=== PATIENT | female | born 1935 | race Caucasian/White ===

== ENCOUNTER → 2016-12-10 | Outpatient (CLI) | payer MEDICARE, OTHER ==
[2016-12-13 11:37] LABS: Alternaria alternata IgE <0.35 kU/L (<0.35); Asperg. fumagatus IgE <0.35 kU/L (<0.35); Asperg. fumagatus IgE Class CLASS 0; Cat Epith & Dander IgE <0.35 kU/L (<0.35); Cat Epith & Dander IgE Class CLASS 0; Clad herbarum IgE <0.35 kU/L (<0.35); Clad herbarum IgE Class CLASS 0; Com. Pigweed IgE <0.35 kU/L (<0.35); Com. Pigweed IgE Class CLASS 0; Common Ragweed IgE Class CLASS 0; Cow's Milk IgE Class CLASS 0; Dermato. farinae IgE <0.35 kU/L (<0.35); Dermato. farinae IgE Class CLASS 0; House Dust (Greer) IgE <0.35 kU/L (<0.35); House Dust (Greer) IgE Class CLASS 0; Maple (Box Elder) IgE <0.35 kU/L (<0.35); Maple (Box Elder) IgE Class CLASS 0; Penicillium notatum IgE Class CLASS 0; Timothy Grass IgE <0.35 kU/L (<0.35); Timothy Grass IgE Class CLASS 0
[2016-12-16 00:04] LABS: Cladosporium herbarium IgG 26.8 mcg/mL (< 14.7); Phoma ssp. IgG 5.4 mcg/mL (< 6.6); Saccaharomospora viridis Not detected (Not detected); Saccaharopoly. rectivirgula Not detected (Not detected)
== END | disposition home or self-care (01) ==
LOC: LABWHC1 11:27
PROVIDERS: ATTEND Internal Medicine Sleep Medicine
DX: B44.89 Other forms of aspergillosis (principal)
CPT/HCPCS: 36415; 82785; 86001; 86003; 86606; 86609

== ENCOUNTER 2017-11-08 17:11 | Emergency (ER) | payer MEDICARE, OTHER ==
[2017-11-08 17:18] VITALS: RESP 18
[2017-11-08 17:21] LABS: Glucose,Whole Blood 99 mg/dL (75-99)
[2017-11-08] MEDS ORDERED: SODIUM CHLORIDE 0.9% 1,000 ML IV STA ×2 (17:38)
--- NOTE | 2017-11-08 17:42 | ED ---
Syncope HPI - General Chief Complaint: Syncope Stated Complaint: syncope Time Seen by Provider: 11/08/17 17:11 Source: patient, EMS, RN notes reviewed Mode of arrival: EMS Limitations: no limitations - History of Present Illness Initial Comments: This is a 82-year-old female who was brought in by EMS after having a syncopal episode at home. She developed nausea and vomiting and diarrhea today. She had about 5 episodes of vomiting and 6-8 episodes of diarrhea. The episode occurred while she was vomiting. She passed out for approximately 30 seconds. No trauma involved the patient daughter was present when this occurred. She has been having hot and cold spells. She is afebrile at home with found to have a temperature 101 upon arrival here. She has had a cough and some sneezing. She voices no other complaints at this time she feels MD Complaint: loss of consciousness - Related Data Home Medications Medication Instructions Recorded Confirmed Amitriptyline HCl [Elavil] 25 mg PO HS 11/08/17 11/08/17 Iron 28mg 28 mg PO DAILY 11/08/17 11/08/17 Mometasone Inhalr 220 Mcg/Puff 1 puff INHALATION RT-HS 11/08/17 11/08/17 [Asmanex] Montelukast [Singulair] 10 mg PO HS 11/08/17 11/08/17 Nebivolol [Bystolic] 5 mg PO DAILY 11/08/17 11/08/17 Omeprazole 20 mg PO DAILY 11/08/17 11/08/17 Ondansetron [Zofran] 4 mg PO BID PRN 11/08/17 11/08/17 Previous Rx's Medication Instructions Recorded Ondansetron Odt [Zofran Odt] 4 mg PO Q8HR PRN #10 tab 11/08/17 Allergies Allergy/AdvReac Type Severity Reaction Status Date / Time tramadol Allergy Severe Nausea & Verified 11/08/17 17:42 Vomiting & Diarrhea Review of Systems ROS Statement: Those systems with pertinent positive or pertinent negative responses have been documented in the HPI. ROS Other: All systems not noted in ROS Statement are negative. Past Medical History Past Medical History: Asthma, GERD/Reflux, Hypertension History of Any Multi-Drug Resistant Organisms: None Reported Past Surgical History: Appendectomy, Hysterectomy Additional Past Surgical History / Comment(s): Lumpectomy Past Psychological History: No Psychological Hx Reported Smoking Status: Never smoker Past Alcohol Use History: Daily, Occasional Past Drug Use History: None Reported General Exam - General Exam Comments Initial Comments: This is a well-developed well-nourished awake alert oriented 3 female Limitations: no limitations General appearance: alert, in no apparent distress Head exam: Present: atraumatic, normocephalic, normal inspection Eye exam: Present: normal appearance, PERRL, EOMI. Absent: scleral icterus, conjunctival injection, periorbital swelling ENT exam: Present: mucous membranes dry Neck exam: Present: normal inspection, full ROM. Absent: tenderness, meningismus, lymphadenopathy Respiratory exam: Present: normal lung sounds bilaterally. Absent: respiratory distress, wheezes, rales, rhonchi, stridor Cardiovascular Exam: Present: normal rhythm, tachycardia GI/Abdominal exam: Present: soft, normal bowel sounds. Absent: distended, tenderness, guarding, rebound, rigid Extremities exam: Present: normal inspection, full ROM, normal capillary refill. Absent: tenderness, pedal edema, joint swelling, calf tenderness Back exam: Present: normal inspection Neurological exam: Present: alert, oriented X3, CN II-XII intact Psychiatric exam: Present: normal affect, normal mood Skin exam: Present: warm, dry, intact, normal color. Absent: rash Course Vital Signs 11/08/17 11/08/17 11/08/17 17:14 19:17 20:32 Temperature 101 F H 101.6 F H 100.9 F H Pulse Rate 87 89 83 Respiratory 18 18 18 Rate Blood Pressure 199/88 157/73 150/50 O2 Sat by Pulse 98 98 100 Oximetry 11/08/17 21:07 Temperature Pulse Rate 93 Respiratory 18 Rate Blood Pressure O2 Sat by Pulse 98 Oximetry - Reevaluation(s) Reevaluation #1: 11/08/17 19:07 Patient states she's developed a headache and does not believe that she struck her head when she fell. She has no focal deficits complaint complains of frontal headache. Patient be given medication for this a CT will be ordered. EKG Findings - EKG Results: EKG: interpreted by GLENNA, sinus rhythm (Normal sinus rhythm with a rate of 89. Interval 198 QRS duration 80 QT since QTC of 360/[address] configuration no acute elevations or depression seen.) Medical Decision Making - Medical Decision Making I did have a long discussion with the patient family regarding findings patient' s isn't patient is consistent with a gastroenteritis with dehydration. She also had vasovagal syncope. Patient will be discharged she was able amulet without any difficulty be given a prescription for Zofran ODT. She is follow- up with her doctor return when necessary - Lab Data Result diagrams: 11/08/17 17:26 11/08/17 17:38 Lab Results 11/08/17 11/08/17 11/08/17 Range/Units 17:19 17:26 17:26 WBC 11.6 H (3.8-10.6) k/uL RBC 4.19 (3.80-5.40) m/uL Hgb 13.4 (11.4-16.0) gm/dL Hct 40.4 (34.0-46.0) % MCV 96.4 (80.0-100.0) fL MCH 32.0 (25.0-35.0) pg MCHC 33.1 (31.0-37.0) g/dL RDW 12.4 (11.5-15.5) % Plt Count 273 (150-450) k/uL Neutrophils % 91 % Lymphocytes % 3 % Monocytes % 3 % Eosinophils % 2 % Basophils % 0 % Neutrophils # 10.6 H (1.3-7.7) k/uL Lymphocytes # 0.4 L (1.0-4.8) k/uL Monocytes # 0.4 (0-1.0) k/uL Eosinophils # 0.2 (0-0.7) k/uL Basophils # 0.0 (0-0.2) k/uL PT 10.8 (9.0-12.0) sec INR 1.1 (<1.2) APTT 20.6 L (22.0-30.0) sec Sodium (137-145) mmol/L Potassium (3.5-5.1) mmol/L Chloride (98-107) mmol/L Carbon Dioxide (22-30) mmol/L Anion Gap mmol/L BUN (7-17) mg/dL Creatinine (0.52-1.04) mg/dL Est GFR (CKD-EPI)AfAm (>60 ml/min/1.73 sqM) Est GFR (CKD-EPI)NonAf (>60 ml/min/1.73 sqM) Glucose (74-99) mg/dL POC Glucose (mg/dL) 99 (75-99) mg/dL POC Glu Process Control Tech ID Damaris Dietrich Plasma Lactic Acid Ap (0.7-2.0) mmol/L Calcium (8.4-10.2) mg/dL Magnesium (1.6-2.3) mg/dL Total Bilirubin (0.2-1.3) mg/dL AST (14-36) U/L ALT (9-52) U/L Alkaline Phosphatase (38-126) U/L Total Creatine Kinase (30-135) U/L CK-MB (CK-2) (0.0-2.4) ng/mL CK-MB (CK-2) Rel Index Troponin I (0.000-0.034) ng/mL Total Protein (6.3-8.2) g/dL Albumin (3.5-5.0) g/dL Amylase (30-110) U/L Lipase (23-300) U/L Urine Color Urine Appearance (Clear) Urine pH (5.0-8.0) Ur Specific [place] (1.001-1.035) Urine Protein (Negative) Urine Glucose (UA) (Negative) Urine Ketones (Negative) Urine Blood (Negative) Urine Nitrite (Negative) Urine Bilirubin (Negative) Urine Urobilinogen (<2.0) mg/dL Ur Leukocyte Esterase (Negative) Urine RBC (0-5) /hpf Urine WBC (0-5) /hpf Ur Squamous Epith Cells (0-4) /hpf Amorphous Sediment (None) /hpf Hyaline Casts (0-2) /lpf Urine Mucus (None) /hpf Influenza Type A RNA (Not Detectd) Influenza Type B (PCR) (Not Detectd) 11/08/17 11/08/17 11/08/17 Range/Units 17:26 17:38 17:38 WBC (3.8-10.6) k/uL RBC (3.80-5.40) m/uL Hgb (11.4-16.0) gm/dL Hct (34.0-46.0) % MCV (80.0-100.0) fL MCH (25.0-35.0) pg MCHC (31.0-37.0) g/dL RDW (11.5-15.5) % Plt Count (150-450) k/uL Neutrophils % % Lymphocytes % % Monocytes % % Eosinophils % % Basophils % % Neutrophils # (1.3-7.7) k/uL Lymphocytes # (1.0-4.8) k/uL Monocytes # (0-1.0) k/uL Eosinophils # (0-0.7) k/uL Basophils # (0-0.2) k/uL PT (9.0-12.0) sec INR (<1.2) APTT (22.0-30.0) sec Sodium 143 (137-145) mmol/L Potassium 4.0 (3.5-5.1) mmol/L Chloride 106 (98-107) mmol/L Carbon Dioxide 24 (22-30) mmol/L Anion Gap 13 mmol/L BUN 16 (7-17) mg/dL Creatinine 0.60 (0.52-1.04) mg/dL Est GFR (CKD-EPI)AfAm >90 (>60 ml/min/1.73 sqM) Est GFR (CKD-EPI)NonAf 87 (>60 ml/min/1.73 sqM) Glucose 127 H (74-99) mg/dL POC Glucose (mg/dL) (75-99) mg/dL POC Glu Process Control Tech ID Plasma Lactic Acid Ap (0.7-2.0) mmol/L Calcium 9.9 (8.4-10.2) mg/dL Magnesium 1.5 L (1.6-2.3) mg/dL Total Bilirubin 0.9 (0.2-1.3) mg/dL AST 21 (14-36) U/L ALT 25 (9-52) U/L Alkaline Phosphatase 70 (38-126) U/L Total Creatine Kinase 92 (30-135) U/L CK-MB (CK-2) 1.2 (0.0-2.4) ng/mL CK-MB (CK-2) Rel Index 1.3 Troponin I <0.012 (0.000-0.034) ng/mL Total Protein 7.1 (6.3-8.2) g/dL Albumin 4.4 (3.5-5.0) g/dL Amylase 177 H (30-110) U/L Lipase 67 (23-300) U/L Urine Color Urine Appearance (Clear) Urine pH (5.0-8.0) Ur Specific [place] (1.001-1.035) Urine Protein (Negative) Urine Glucose (UA) (Negative) Urine Ketones (Negative) Urine Blood (Negative) Urine Nitrite (Negative) Urine Bilirubin (Negative) Urine Urobilinogen (<2.0) mg/dL Ur Leukocyte Esterase (Negative) Urine RBC (0-5) /hpf Urine WBC (0-5) /hpf Ur Squamous Epith Cells (0-4) /hpf Amorphous Sediment (None) /hpf Hyaline Casts (0-2) /lpf Urine Mucus (None) /hpf Influenza Type A RNA Not Detected (Not Detectd) Influenza Type B (PCR) Not Detected (Not Detectd) 11/08/17 11/08/17 Range/Units 17:39 17:46 WBC (3.8-10.6) k/uL RBC (3.80-5.40) m/uL Hgb (11.4-16.0) gm/dL Hct (34.0-46.0) % MCV (80.0-100.0) fL MCH (25.0-35.0) pg MCHC (31.0-37.0) g/dL RDW (11.5-15.5) % Plt Count (150-450) k/uL Neutrophils % % Lymphocytes % % Monocytes % % Eosinophils % % Basophils % % Neutrophils # (1.3-7.7) k/uL Lymphocytes # (1.0-4.8) k/uL Monocytes # (0-1.0) k/uL Eosinophils # (0-0.7) k/uL Basophils # (0-0.2) k/uL PT (9.0-12.0) sec INR (<1.2) APTT (22.0-30.0) sec Sodium (137-145) mmol/L Potassium (3.5-5.1) mmol/L Chloride (98-107) mmol/L Carbon Dioxide (22-30) mmol/L Anion Gap mmol/L BUN (7-17) mg/dL Creatinine (0.52-1.04) mg/dL Est GFR (CKD-EPI)AfAm (>60 ml/min/1.73 sqM) Est GFR (CKD-EPI)NonAf (>60 ml/min/1.73 sqM) Glucose (74-99) mg/dL POC Glucose (mg/dL) (75-99) mg/dL POC Glu Process Control Tech ID Plasma Lactic Acid Ap 1.3 (0.7-2.0) mmol/L Calcium (8.4-10.2) mg/dL Magnesium (1.6-2.3) mg/dL Total Bilirubin (0.2-1.3) mg/dL AST (14-36) U/L ALT (9-52) U/L Alkaline Phosphatase (38-126) U/L Total Creatine Kinase (30-135) U/L CK-MB (CK-2) (0.0-2.4) ng/mL CK-MB (CK-2) Rel Index Troponin I (0.000-0.034) ng/mL Total Protein (6.3-8.2) g/dL Albumin (3.5-5.0) g/dL Amylase (30-110) U/L Lipase (23-300) U/L Urine Color Yellow Urine Appearance Clear (Clear) Urine pH 5.0 (5.0-8.0) Ur Specific [place] 1.018 (1.001-1.035) Urine Protein 1+ H (Negative) Urine Glucose (UA) Trace H (Negative) Urine Ketones 2+ H (Negative) Urine Blood Small H (Negative) Urine Nitrite Negative (Negative) Urine Bilirubin Negative (Negative) Urine Urobilinogen <2.0 (<2.0) mg/dL Ur Leukocyte Esterase Negative (Negative) Urine RBC 1 (0-5) /hpf Urine WBC 2 (0-5) /hpf Ur Squamous Epith Cells 1 (0-4) /hpf Amorphous Sediment Occasional H (None) /hpf Hyaline Casts 1 (0-2) /lpf Urine Mucus Rare H (None) /hpf Influenza Type A RNA (Not Detectd) Influenza Type B (PCR) (Not Detectd) - Radiology Data Radiology results: report reviewed (I did review the imaging and reports no acute findings.), image reviewed Disposition Clinical Impression: Vasovagal syncope, Dehydration, Gastroenteritis, Viral syndrome Disposition: HOME SELF-CARE Condition: Good Instructions: Dehydration (ED), Syncope (ED), Gastroenteritis (ED), Acute Nausea and Vomiting (ED), Viral Syndrome (ED), Fever in Adults (ED) Prescriptions: Ondansetron Odt [Zofran Odt] 4 mg PO Q8HR PRN #10 tab PRN Reason: Nausea Referrals: Karl Jerez MD [Primary Care Provider] - 1-2 days
[2017-11-08 17:55] LABS: Basophils % (A) 0 %; Eosinophils # (A) 0.2 k/uL (0-0.7); Eosinophils % (A) 2 %; HCT 40.4 % (34.0-46.0); HGB 13.4 gm/dL (11.4-16.0); Lymphocytes # (A) 0.4 k/uL (1.0-4.8); Lymphocytes % (A) 3 %; MCHC 33.1 g/dL (31.0-37.0); MCV 96.4 fL (80.0-100.0); Mean Platelet Volume 7.3; Monocytes # (A) 0.4 k/uL (0-1.0); Monocytes % (A) 3 %; Neutrophils # (A) 10.6 k/uL (1.3-7.7); Neutrophils % (A) 91 %; Platelet Count 273 k/uL (150-450); RBC 4.19 m/uL (3.80-5.40); RDW 12.4 % (11.5-15.5); WBC 11.6 k/uL (3.8-10.6)
--- NOTE | 2017-11-08 18:05 | XR ---
EXAMINATION TYPE: XR chest 2V DATE OF EXAM: 11/08/2017 COMPARISON: NONE HISTORY: Nausea and vomiting TECHNIQUE: Frontal and lateral views of the chest are obtained. FINDINGS: There is no heart failure nor confluent pneumonic infiltrate. Costophrenic angles are casey r. Thoracic aorta is atheromatous. There is spurring in the thoracic spine. IMPRESSION: Atheromatous aorta. No active cardiopulmonary disease.
[2017-11-08 18:07] LABS: INR 1.1 (<1.2); Prothrombin Time 10.8 sec (9.0-12.0)
[2017-11-08 18:11] LABS: Amorphous Sediment,Urine Occasional /hpf; Appearance,Urine Clear (Clear); Bilirubin,Urine Negative (Negative); Blood,Urine Small (Negative); Color,Urine Yellow; Glucose,Urine (UA) Trace (Negative); Hyaline Casts,Urine 1 /lpf (0-2); Ketones,Urine 2+ (Negative); Leukocyte Esterase,Urine Negative (Negative); Mucus,Urine Rare /hpf; Nitrite,Urine Negative (Negative); Protein,Urine 1+ (Negative); RBC,Urine 1 /hpf (0-5); Specific Gravity,Urine 1.018 (1.001-1.035); Squamous Epithelial Cell,Urine 1 /hpf (0-4); Urobilinogen,Urine <2.0 mg/dL (<2.0); WBC,Urine 2 /hpf (0-5)
[2017-11-08 18:15] LABS: ALT 25 U/L (9-52); AST 21 U/L (14-36); Albumin 4.4 g/dL (3.5-5.0); Alkaline Phosphatase 70 U/L (38-126); Amylase 177 U/L (30-110); Anion Gap 13 mmol/L; Blood Urea Nitrogen 16 mg/dL (7-17); Calcium 9.9 mg/dL (8.4-10.2); Carbon Dioxide 24 mmol/L (22-30); Chloride 106 mmol/L (98-107); Glucose 127 mg/dL (74-99); Lipase 67 U/L (23-300); Magnesium 1.5 mg/dL (1.6-2.3); Sodium 143 mmol/L (137-145); Total Bilirubin 0.9 mg/dL (0.2-1.3); Total Protein 7.1 g/dL (6.3-8.2)
[2017-11-08 18:24] LABS: Creatine Kinase 92 U/L (30-135)
[2017-11-08 18:38] LABS: Creatine Kinase MB 1.2 ng/mL (0.0-2.4); Troponin I <0.012 ng/mL (0.000-0.034)
[2017-11-08 18:43] LABS: Partial Thromboplastin Time 20.6 sec (22.0-30.0)
[2017-11-08] MEDS ORDERED: MAGNESIUM SULFATE-D5W PMX 1 GM in DEXTROSE/WATER 1 100ML.BAG IVPB ONE (18:44)
[2017-11-08] MEDS ORDERED: ACETAMINOPHEN TAB 325 MG TAB PO STA (19:06)
--- NOTE | 2017-11-08 19:33 | CT ---
EXAMINATION TYPE: CT brain wo con DATE OF EXAM: 11/08/2017 COMPARISON: NONE HISTORY: Patient complains of syncopeal episode. Patient denies complaints at time of study. CT DLP: 796 mGycm Automated exposure control for dose reduction was used. FINDINGS: There is some cerebral mild cortical atrophy. There is no mass effect nor midline shift. There is no sign of intracranial hemorrhage. The calvarium is intact. IMPRESSION: MILD ATROPHY. NO ACUTE INTRACRANIAL ABNORMALITY.
[2017-11-08 21:20] VITALS: BP 127/87; PULSE 87; TEMP 100
== END 2017-11-08 21:20 | disposition home or self-care (01) ==
LOC: EC 17:11
DX: K52.9 Noninfective gastroenteritis and colitis, unspecified (principal); R55 Syncope and collapse; E86.0 Dehydration; B34.9 Viral infection, unspecified; J45.909 Unspecified asthma, uncomplicated; K21.9 Gastro-esophageal reflux disease without esophagitis; I10 Essential (primary) hypertension; Z90.49 Acquired absence of other specified parts of digestive tract; Z79.51 Long term (current) use of inhaled steroids; Z79.899 Other long term (current) drug therapy; Z88.6 Allergy status to analgesic agent
CPT/HCPCS: 36415; 93005; 80053; 82150; 82550; 82553; 83605; 83690; 83735; 84484; 85025; 85610; 85730; 81001; 87502; 71046; 70450; 99285; 96365; 96366; 96361; J3475

== ENCOUNTER → 2019-01-17 | Outpatient (CLI) | payer MEDICARE ==
--- NOTE | 2019-01-17 11:15 | US ---
EXAMINATION TYPE: US abdomen complete DATE OF EXAM: 01/17/2019 COMPARISON: NONE CLINICAL HISTORY: Abdominal Pain R10.32. Pt states left side ABD pain, general malaise EXAM MEASUREMENTS: Liver Length: 13.6 cm Gallbladder Wall: 0.1 cm CBD: 0.3 cm Spleen: 7.0 cm Right Kidney: 9.9 x 3.7 x 4.9 cm Left Kidney: 10.9 x 3.9 x 4.5 cm Very thin pt, difficult scan Pancreas: wnl Liver: wnl Gallbladder: wnl Evidence for sonographic Hardwick's sign: No CBD: wnl Spleen: wnl Right Kidney: wnl Left Kidney: wnl Upper IVC: wnl Abd Aorta: Mild atheromatous changes are present within the aorta, no aneurysm No abnormality visualized to account for pt's symptoms There is no ascites. Kidneys show normal cortical medullary differentiation. IMPRESSION: No significant abnormality
== END ==
LOC: RADUSWWP 09:23
PROVIDERS: ATTEND Internal Medicine
DX: R10.32 Left lower quadrant pain (principal)
CPT/HCPCS: 76700

== ENCOUNTER 2020-03-04 20:42 | Inpatient (IN) | payer MEDICARE ==
[2020-03-04] MEDS ORDERED: SODIUM CHLORIDE 0.9% 500 ML 500 ML IV STA (21:15)
[2020-03-04] MEDS ORDERED: ONDANSETRON 4 MG/2 ML VIAL IVP STA (21:16)
--- NOTE | 2020-03-04 21:19 | ED ---
General Adult HPI - General Chief complaint: Syncope Stated complaint: Syncope Time Seen by Provider: 03/04/20 20:45 Source: patient, EMS Mode of arrival: EMS - History of Present Illness Initial comments: Patient is an 85-year-old female with past history of hypertension who presents to emergency room after she had a syncopal episode at home. at bedside provides the history. He states that the patient was sitting at the table and she started to feel ill. She felt as if she was going to pass out. They had just finished eating dinner. The patient then got up and attempted to ambulate to go lay down. At this point she did sustain a syncopal episode and fell to the ground hitting her head. states she was only out for a few seconds before she became arousable. EMS was called. Patient found to be in A. fib with RVR. She does arrive to the emergency department does have several episodes of vomiting. States it is due to feeling lightheaded. Patient denies any chest pain or shortness of breath. No abdominal pain. No recent fevers or chills. Denies any recent illnesses. Patient denies any neck pain. No pain in her extremities secondary to the fall. There are no alleviating, precipitating or modifying factors - Related Data Home Medications Medication Instructions Recorded Confirmed Multivitamins, Thera [Multivitamin 1 tab PO DAILY 03/04/20 03/04/20 (formulary)] Pantoprazole Sodium [Protonix] 20 mg PO DAILY 03/04/20 03/04/20 traZODone HCL 100 mg PO HS 03/04/20 03/04/20 Previous Rx's Medication Instructions Recorded Lisinopril [Prinivil] 10 mg PO DAILY #30 tab 03/07/20 Meclizine [Antivert] 25 mg PO TID #30 tab 03/07/20 Rivaroxaban [Xarelto] 20 mg PO W/SUPPER #30 tab 03/07/20 Allergies Allergy/AdvReac Type Severity Reaction Status Date / Time tramadol Allergy Severe Nausea & Verified 03/04/20 22:02 Vomiting & Diarrhea Review of Systems ROS Statement: Those systems with pertinent positive or pertinent negative responses have been documented in the HPI. ROS Other: All systems not noted in ROS Statement are negative. Past Medical History Past Medical History: Asthma, GERD/Reflux, Hypertension History of Any Multi-Drug Resistant Organisms: None Reported Past Surgical History: Appendectomy, Hysterectomy Additional Past Surgical History / Comment(s): Lumpectomy Past Psychological History: No Psychological Hx Reported Smoking Status: Never smoker Past Alcohol Use History: Daily, Occasional Past Drug Use History: None Reported General Exam General appearance: alert, in no apparent distress Head exam: Present: atraumatic, normocephalic, normal inspection Eye exam: Present: normal appearance, PERRL, EOMI. Absent: scleral icterus, conjunctival injection, periorbital swelling ENT exam: Present: normal exam, mucous membranes moist Neck exam: Present: normal inspection. Absent: tenderness, meningismus, lymphadenopathy Respiratory exam: Present: normal lung sounds bilaterally. Absent: respiratory distress, wheezes, rales, rhonchi, stridor Cardiovascular Exam: Present: tachycardia, irregular rhythm, normal heart sounds. Absent: systolic murmur, diastolic murmur, rubs, gallop, clicks GI/Abdominal exam: Present: soft, normal bowel sounds. Absent: distended, tenderness, guarding, rebound, rigid Extremities exam: Present: normal inspection, full ROM, normal capillary refill. Absent: tenderness, pedal edema, joint swelling, calf tenderness Back exam: Present: normal inspection Neurological exam: Present: alert, oriented X3, CN II-XII intact Psychiatric exam: Present: normal affect, normal mood Skin exam: Present: warm, dry, intact, normal color. Absent: rash Course Vital Signs 03/04/20 03/04/20 03/05/20 20:44 23:00 02:00 Temperature 97.7 F Pulse Rate 113 H 109 H 78 Pulse Rate [ Pulse Oximetery ] Respiratory 19 18 18 Rate Blood Pressure 143/97 130/95 121/68 Blood Pressure [Right Arm] O2 Sat by Pulse 96 96 96 Oximetry 03/05/20 03/05/20 03/05/20 04:00 08:00 11:50 Temperature 97.8 F Pulse Rate Pulse Rate [ 70 61 55 L Pulse Oximetery ] Respiratory 18 18 16 Rate Blood Pressure Blood Pressure 123/78 138/75 155/76 [Right Arm] O2 Sat by Pulse 95 96 98 Oximetry EKG Findings - EKG Comments: EKG Findings:: EKG at 2050 demonstrates A. fib with a rapid ventricular rate of 116. EKG at 2257 demonstrates A. fib with a rapid ventricular rate. Rate of 119. QRS 88. QTC of 486. EKG at 2358 demonstrates sinus rhythm with a rate of 75. No acute st segment elevation Medical Decision Making - Medical Decision Making Upon arrival patient was placed into room 1. A thorough history and physical exam was performed. Patient is placed on continuous pulse ox and cardiac monitoring. Heart rate ranges from 130 to 170. Twelve-lead EKG was performed which demonstrates atrial fibrillation with a rapid ventricular response. Patient denies a history of A. fib. She is not on any anticoagulation. Patient was sent over for a CT of her brain and cervical spine because of her blunt head trauma. Demonstrates cerebral atrophy with a possible right-sided sellar mass. No acute fractures and cervical spine. Chest x-ray demonstrates mild pulmonary fibrotic changes with mild COPD. Laboratory studies were conducted. Sodium 132 with potassium 3.4. Troponin is negative. The patient is started on Cardizem at 5 mg per hour. I did recommend hospital admission for syncope and new onset A. fib. I do not feel the patient would benefit from heparinization at this time because of her newly found mass. I discussed the case with Dr. Wright who did agree to the hospital admission. Patient is currently awaiting a bed on the floor - Lab Data Result diagrams: 03/07/20 06:28 03/07/20 06:28 Lab Results 03/04/20 03/04/20 03/04/20 Range/Units 21:18 21:18 21:18 WBC 6.2 (3.8-10.6) k/uL RBC 3.82 (3.80-5.40) m/uL Hgb 12.6 (11.4-16.0) gm/dL Hct 38.3 (34.0-46.0) % MCV 100.3 H (80.0-100.0) fL MCH 32.9 (25.0-35.0) pg MCHC 32.8 (31.0-37.0) g/dL RDW 12.1 (11.5-15.5) % Plt Count 246 (150-450) k/uL Neutrophils % 47 % Lymphocytes % 40 % Monocytes % 7 % Eosinophils % 3 % Basophils % 1 % Neutrophils # 2.9 (1.3-7.7) k/uL Lymphocytes # 2.5 (1.0-4.8) k/uL Monocytes # 0.4 (0-1.0) k/uL Eosinophils # 0.2 (0-0.7) k/uL Basophils # 0.1 (0-0.2) k/uL PT 11.6 (9.0-12.0) sec INR 1.1 (<1.2) APTT 21.0 L (22.0-30.0) sec Sodium 132 L (137-145) mmol/L Potassium 3.4 L (3.5-5.1) mmol/L Chloride 99 (98-107) mmol/L Carbon Dioxide 20 L (22-30) mmol/L Anion Gap 13 mmol/L BUN 13 (7-17) mg/dL Creatinine 0.65 (0.52-1.04) mg/dL Est GFR (CKD-EPI)AfAm >90 (>60 ml/min/1.73 sqM) Est GFR (CKD-EPI)NonAf 83 (>60 ml/min/1.73 sqM) Glucose 105 H (74-99) mg/dL POC Glucose (mg/dL) (75-99) mg/dL POC Glu Computer Forensics Examiner ID Calcium 9.8 (8.4-10.2) mg/dL Magnesium 1.8 (1.6-2.3) mg/dL Total Bilirubin 0.9 (0.2-1.3) mg/dL AST 33 (14-36) U/L ALT 19 (4-34) U/L Alkaline Phosphatase 56 (38-126) U/L Troponin I (0.000-0.034) ng/mL Total Protein 6.5 (6.3-8.2) g/dL Albumin 4.4 (3.5-5.0) g/dL 03/04/20 03/04/20 Range/Units 21:18 21:29 WBC (3.8-10.6) k/uL RBC (3.80-5.40) m/uL Hgb (11.4-16.0) gm/dL Hct (34.0-46.0) % MCV (80.0-100.0) fL MCH (25.0-35.0) pg MCHC (31.0-37.0) g/dL RDW (11.5-15.5) % Plt Count (150-450) k/uL Neutrophils % % Lymphocytes % % Monocytes % % Eosinophils % % Basophils % % Neutrophils # (1.3-7.7) k/uL Lymphocytes # (1.0-4.8) k/uL Monocytes # (0-1.0) k/uL Eosinophils # (0-0.7) k/uL Basophils # (0-0.2) k/uL PT (9.0-12.0) sec INR (<1.2) APTT (22.0-30.0) sec Sodium (137-145) mmol/L Potassium (3.5-5.1) mmol/L Chloride (98-107) mmol/L Carbon Dioxide (22-30) mmol/L Anion Gap mmol/L BUN (7-17) mg/dL Creatinine (0.52-1.04) mg/dL Est GFR (CKD-EPI)AfAm (>60 ml/min/1.73 sqM) Est GFR (CKD-EPI)NonAf (>60 ml/min/1.73 sqM) Glucose (74-99) mg/dL POC Glucose (mg/dL) 113 H (75-99) mg/dL POC Glu Computer Forensics Examiner ID Marline Jones A Calcium (8.4-10.2) mg/dL Magnesium (1.6-2.3) mg/dL Total Bilirubin (0.2-1.3) mg/dL AST (14-36) U/L ALT (4-34) U/L Alkaline Phosphatase (38-126) U/L Troponin I <0.012 (0.000-0.034) ng/mL Total Protein (6.3-8.2) g/dL Albumin (3.5-5.0) g/dL - EKG Data EKG Comments: EKG demonstrates A. fib with a rapid ventricular rate of 116. QRS 86. QTC of 480. Mild ST depression in V2 through V6. No acute ST segment elevations Critical Care Time Critical Care Time: Yes Critical Care Time: 32 minutes Disposition Clinical Impression: Afib, Syncope, Blunt head trauma Disposition: ADMITTED IP TO THIS [facility] Condition: Serious Is patient prescribed a controlled substance at d/c from ED?: No Decision to Admit Reason: Admit from EC Decision Date: 03/04/20 Decision Time: 22:39
[2020-03-04 21:32] LABS: Glucose,Whole Blood 113 mg/dL (75-99)
[2020-03-04 21:34] LABS: Basophils # (A) 0.1 k/uL (0-0.2); Basophils % (A) 1 %; Eosinophils # (A) 0.2 k/uL (0-0.7); Eosinophils % (A) 3 %; HCT 38.3 % (34.0-46.0); HGB 12.6 gm/dL (11.4-16.0); Lymphocytes # (A) 2.5 k/uL (1.0-4.8); Lymphocytes % (A) 40 %; MCH 32.9 pg (25.0-35.0); MCHC 32.8 g/dL (31.0-37.0); MCV 100.3 fL (80.0-100.0); Mean Platelet Volume 7.2; Monocytes # (A) 0.4 k/uL (0-1.0); Monocytes % (A) 7 %; Neutrophils # (A) 2.9 k/uL (1.3-7.7); Neutrophils % (A) 47 %; Platelet Count 246 k/uL (150-450); RBC 3.82 m/uL (3.80-5.40); RDW 12.1 % (11.5-15.5); WBC 6.2 k/uL (3.8-10.6)
[2020-03-04 21:48] LABS: ALT 19 U/L (4-34); AST 33 U/L (14-36); African American GFR (CKD) >90 (>60 ml/min/1.73 sqM); Albumin 4.4 g/dL (3.5-5.0); Alkaline Phosphatase 56 U/L (38-126); Anion Gap 13 mmol/L; Blood Urea Nitrogen 13 mg/dL (7-17); Calcium 9.8 mg/dL (8.4-10.2); Carbon Dioxide 20 mmol/L (22-30); Chloride 99 mmol/L (98-107); Glucose 105 mg/dL (74-99); Magnesium 1.8 mg/dL (1.6-2.3); Non-African American GFR(CKD) 83 (>60 ml/min/1.73 sqM); Potassium 3.4 mmol/L (3.5-5.1); Sodium 132 mmol/L (137-145); Total Bilirubin 0.9 mg/dL (0.2-1.3); Total Protein 6.5 g/dL (6.3-8.2)
[2020-03-04 21:50] LABS: INR 1.1 (<1.2); Prothrombin Time 11.6 sec (9.0-12.0)
--- NOTE | 2020-03-04 21:56 | CT ---
EXAMINATION TYPE: CT brain cspine wo con DATE OF EXAM: 03/04/2020 COMPARISON: CT brain 11/08/2017 HISTORY: Syncope and fall. Neck pain CT DLP: 1277.5 mGycm Automated exposure control for dose reduction was used. There is mild cerebral atrophy. There is no mass effect nor midline shift. There is no sign of intrac ranial hemorrhage. The calvarium is intact. There is no evidence of cerebral edema. There is slight i ncreased density in the right side of the sella slightly expanded. Cervical vertebra have normal alignment. There is mild disc space narrowing. There is no compression fracture. Posterior elements are intact. There is mild hypertrophic spurring of the facet joints. Sku ll base is intact. There is normal aeration of the temporal bones. IMPRESSION: Cerebral atrophy appropriate for age unchanged. Possible right side sellar mass. 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 Negative CT scan of the cervical spine. No fracture.
--- NOTE | 2020-03-04 21:57 | XR ---
EXAMINATION TYPE: XR chest 2V DATE OF EXAM: 03/04/2020 COMPARISON: 11/08/2017 HISTORY: Syncope TECHNIQUE: 2 views FINDINGS: There is no heart failure nor confluent pneumonic infiltrate. There is slight coarsening of interstitial markings. There is no pleural effusion. There are no hilar masses. IMPRESSION: Mild pulmonary fibrotic changes. Mild COPD. No adverse change.
[2020-03-04] MEDS ORDERED: DILTIAZEM 125 MG in SODIUM CHLORIDE 0.9% 100 ML IV SCH (22:15)
[2020-03-04] MEDS ORDERED: NALOXONE 0.4 MG/ML 1 ML VIAL IV PRN (22:39)
[2020-03-04] MEDS ORDERED: POTASSIUM CHLORIDE ER 20 MEQ TAB.ER PO STA (23:28)
--- NOTE | 2020-03-04 23:28 | P.HPIM ---
History of Present Illness H&P Date: 03/04/20 The patient was seen and evaluated in the emergency room at 10 PM on 03/04 The patient is an 85-year-old female with a PMH of hypertension who presented to the ED after an episode of syncope at home. History supplemented by the at the bedside who witnessed the episode. The patient reports that she had been in her usual state of health all day today and had finished eating her dinner when she got up to walk to her spring former machine to place some dishes when she felt lightheaded. The patient attempted to grab on to a nearby shelf but lost consciousness and fell to the ground, hitting her head. The patient denied preceding chest discomfort, palpitations, nausea, vomiting, diaphoresis, or sha gladys movements. The witnessed the fall and reports that the patient slid down to the ground and hit her head. He immediately activated EMS and reported to the patient began to come around within a minute or two. The patient denied confusion upon regaining consciousness, loss of bladder control, abnormal shaking movements, tongue biting, chest pain, or shortness of breath. She reported feeling sore on her buttocks and where she hit her head. She endorsed 2 subsequent episodes of vomiting after regaining consciousness. In the emergency room, the patient was noted to be in A. fib with RVR. The patient denied any prior history of A. fib or cardiac dysfunction. She denied experien cing any palpitations over the last few days or weeks. A CT brain in the emergency room revealed possible right sided sellar mass, suspicious for a sella meningioma. CT cervical spine was negative. EKG revealed A. fib with RVR at 116 bpm as reviewed by me. Laboratory evaluation revealed a troponin of less than 0.012, WBC 6.2, hemoglobin 12.6, platelets 246, sodium 132, potassium 3.4, chloride 99, CO2 20, BUN 13, creatinine 0.65, and glucose 105. Review of Systems Pertinent positives and negatives as discussed in HPI, a complete review of systems was performed and all other systems are negative. Past Medical History Past Medical History: Asthma, GERD/Reflux, Hypertension History of Any Multi-Drug Resistant Organisms: None Reported Past Surgical History: Appendectomy, Hysterectomy Additional Past Surgical History / Comment(s): Lumpectomy Past Psychological History: No Psychological Hx Reported Smoking Status: Never smoker Past Alcohol Use History: Daily, Occasional Past Drug Use History: None Reported Medications and Allergies Home Medications Medication Instructions Recorded Confirmed Type Nebivolol [Bystolic] 5 mg PO DAILY 11/08/17 03/04/20 History Lisinopril-Hctz 10-12.5 mg 1 tab PO DAILY 03/04/20 03/04/20 History [Zestoretic 10-12.5] Multivitamins, Thera [Multivitamin 1 tab PO DAILY 03/04/20 03/04/20 History (formulary)] Pantoprazole Sodium [Protonix] 20 mg PO DAILY 03/04/20 03/04/20 History traZODone HCL 100 mg PO HS 03/04/20 03/04/20 History Allergies Allergy/AdvReac Type Severity Reaction Status Date / Time tramadol Allergy Severe Nausea & Verified 03/04/20 22:02 Vomiting & Diarrhea Physical Exam Vitals: Vital Signs Temp Pulse Resp BP Pulse Ox 03/04/20 20:44 97.7 F 113 H 19 143/97 96 Intake and Output 03/04/20 03/04/20 03/05/20 14:59 22:59 06:59 Other: Weight 47.627 kg General: non toxic, no distress, appears at stated age, normal weight Derm: no unusual rashes/lesions no unusual ecchymoses, warm, dry Head: atraumatic, normocephalic, symmetric Eyes: EOMI, no lid lag, anicteric sclera, pupils equal round reactive to light ENT: Nose and ears atraumatic, no thrush, no pharyngeal erythema Neck: No thyromegaly, no cervical lymphadenopathy, trachea midline, supple Mouth: no lip lesion, mucus membranes moist, no tongue bites noted Cardiovascular: Irregularly irregular, no murmur, positive posterior tibial pulse bilateral, no edema, capillary refill less than 2 seconds Lungs: CTA bilateral, no rhonchi, no rales , no accessory muscle use Abdominal: soft, nontender to palpation, no guarding, no appreciable organomegaly, normal bowel sounds Ext: no gross muscle atrophy, muscle strength 5 out of 5 in all 4 extremities grossly, no contractures Neuro: CN II-XI grossly intact, light touch intact all 4 extremities, finger to nose within normal limits Psych: Alert, oriented, appropriate affect Results CBC & Chem 7: 03/05/20 03:07 03/05/20 03:07 Labs: Abnormal Lab Results - Last 24 Hours (Table) 03/04/20 03/04/20 03/04/20 Range/Units 21:18 21:18 21:18 MCV 100.3 H (80.0-100.0) fL APTT 21.0 L (22.0-30.0) sec Sodium 132 L (137-145) mmol/L Potassium 3.4 L (3.5-5.1) mmol/L Carbon Dioxide 20 L (22-30) mmol/L Glucose 105 H (74-99) mg/dL POC Glucose (mg/dL) (75-99) mg/dL 03/04/20 Range/Units 21:29 MCV (80.0-100.0) fL APTT (22.0-30.0) sec Sodium (137-145) mmol/L Potassium (3.5-5.1) mmol/L Carbon Dioxide (22-30) mmol/L Glucose (74-99) mg/dL POC Glucose (mg/dL) 113 H (75-99) mg/dL Assessment and Plan Plan: Syncope, likely secondary to newly diagnosed A. 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), likely incidental finding -Obtain Brain MRI for further characterization Hypokalemia -Replace and monitor Hyponatremia, possibly secondary to diuretic chronic use -Monitor for now Hypertension -Hold off on home antihypertensives for now as patient will be started on new antihypertensives DVT prophylaxis -Heparin subq The patient is admitted with an anticipated greater than 2 midnight stay for evaluation of syncope, afib with rvr CODE STATUS: Full Code Discussed with: Patient, , daughter Anticipated discharge date: 2-[address]: Home A total of 40 minutes was spent on the care of this complex patient more than 50% of the time was spent in counseling and care coordination.
[2020-03-05 01:22] LABS: Appearance,Urine Clear (Clear); Bilirubin,Urine Negative (Negative); Blood,Urine Negative (Negative); Color,Urine Yellow; Glucose,Urine (UA) Negative (Negative); Hyaline Casts,Urine 1 /lpf (0-2); Ketones,Urine 1+ (Negative); Leukocyte Esterase,Urine Small (Negative); Mucus,Urine Rare /hpf; Nitrite,Urine Negative (Negative); Protein,Urine Trace (Negative); RBC,Urine <1 /hpf (0-5); Specific Gravity,Urine 1.014 (1.001-1.035); Squamous Epithelial Cell,Urine <1 /hpf (0-4); Urobilinogen,Urine <2.0 mg/dL (<2.0); WBC,Urine 3 /hpf (0-5)
[2020-03-05 03:48] LABS: African American GFR (CKD) >90 (>60 ml/min/1.73 sqM); Anion Gap 9 mmol/L; Blood Urea Nitrogen 15 mg/dL (7-17); Calcium 9.5 mg/dL (8.4-10.2); Carbon Dioxide 24 mmol/L (22-30); Chloride 97 mmol/L (98-107); Glucose 127 mg/dL (74-99); Non-African American GFR(CKD) 81 (>60 ml/min/1.73 sqM); Potassium 4.4 mmol/L (3.5-5.1); Sodium 130 mmol/L (137-145)
[2020-03-05 04:08] LABS: Basophils % (A) 0 %; Eosinophils # (A) 0.1 k/uL (0-0.7); Eosinophils % (A) 1 %; HGB 12.8 gm/dL (11.4-16.0); Lymphocytes # (A) 1.2 k/uL (1.0-4.8); Lymphocytes % (A) 13 %; MCHC 33.8 g/dL (31.0-37.0); MCV 100.6 fL (80.0-100.0); Monocytes # (A) 0.3 k/uL (0-1.0); Monocytes % (A) 3 %; Neutrophils # (A) 7.8 k/uL (1.3-7.7); Neutrophils % (A) 82 %; Platelet Count 262 k/uL (150-450); RBC 3.78 m/uL (3.80-5.40); RDW 12.1 % (11.5-15.5); WBC 9.5 k/uL (3.8-10.6)
[2020-03-05 06:10] LABS: HGB 11.5 gm/dL (11.4-16.0); MCV 99.9 fL (80.0-100.0); Platelet Count 242 k/uL (150-450); RDW 12.1 % (11.5-15.5); WBC 8.5 k/uL (3.8-10.6)
[2020-03-05 06:24] LABS: African American GFR (CKD) >90 (>60 ml/min/1.73 sqM); Anion Gap 8 mmol/L; Blood Urea Nitrogen 15 mg/dL (7-17); Calcium 9.2 mg/dL (8.4-10.2); Carbon Dioxide 25 mmol/L (22-30); Chloride 100 mmol/L (98-107); Glucose 109 mg/dL (74-99); Non-African American GFR(CKD) 83 (>60 ml/min/1.73 sqM); Potassium 4.6 mmol/L (3.5-5.1); Sodium 133 mmol/L (137-145)
[2020-03-05] MEDS: MULTIVITAMINS, THERA 1 EACH TAB PO SCH (09:30)
[2020-03-05] MEDS: HEPARIN SODIUM,PORCINE 5,000 UNIT/ML 1 ML VIAL SQ SCH ×3 (09:30→23:34)
[2020-03-05] MEDS: PANTOPRAZOLE 40 MG TABLET PO SCH (09:30)
[2020-03-05] MEDS ORDERED: LISINOPRIL 2.5 MG TAB PO SCH (13:30)
[2020-03-05 14:31] LABS: T4, Free (Free Thyroxine) 1.33 ng/dL (0.78-2.19)
--- NOTE | 2020-03-05 14:32 | MR ---
MR brain without contrast HISTORY: Brain mass, syncope, fall Multiplanar multisequence imaging through the brain Correlation to CT brain dated 03/04/2020 There is no restricted diffusion. There is no hemorrhage or hydrocephalus. There are normal vascular flow voids. Cerebellopontine angles, corpus callosum, pituitary, cervical medullary junction are norm al. Periventricular confluent and scattered hyperintensities are present and inversion recovery T2-we ighted sequences extending into the subcortical white matter. There is cortical atrophy. Some mild in flammatory change present in the mastoid air cells. Orbits show symmetric appearance. IMPRESSION: Nonspecific white matter demyelination likely related to chronic small vessel ischemia. A ge-related atrophy. No acute brain abnormality evident.
[2020-03-05] MEDS ORDERED: SODIUM CHLORIDE 0.9% 1,000 ML IV SCH (15:15)
--- NOTE | 2020-03-05 15:20 | P.PN ---
Subjective Progress Note Date: 03/05/20 Principal diagnosis: A. fib with RVR Patient was seen and examined with family at bedside. No acute events overnight. Patient continues to report dizziness especially when going from a laying to a standing position. She reports some nausea but no vomiting. She denies any chest pain. She denies any shortness of breath or palpitations. No fever or chills. Objective - Vital Signs Vital signs: Vital Signs Temp 97.8 F 03/05/20 11:50 Pulse 55 L 03/05/20 11:50 Resp 16 03/05/20 11:50 BP 155/76 03/05/20 11:50 Pulse Ox 98 03/05/20 11:50 Intake & Output 03/04/20 03/05/20 03/05/20 18:59 06:59 18:59 Intake Total 35 240 Output Total 1600 800 Balance -3965 -999 Weight 47.627 kg 47.627 kg Intake: Intake, IV Titration 35 Amount Diltiazem 125 mg In 35 Sodium Chloride 0.9% 100 ml @ 5 MG/HR 5 mls/hr IV .Q24H [facility] Rx#:[id number] Oral 240 Output: Urine 1600 800 Other: Voiding Method Bedside Commode Bedside Commode # Voids 2 2 - Exam General: [non toxic], [no distress], [appears at stated age] Derm: [warm], [dry] Head: [atraumatic], [normocephalic], [symmetric] Eyes: [EOMI], [no lid lag], [anicteric sclera] Mouth: [no lip lesion], [mucus membranes moist] Cardiovascular: [S1S2 reg], [no murmur], [positive DP pulse bilateral], Lungs: [CTA bilateral], [no rhonchi, no rales] , [no accessory muscle use] Abdominal: [soft], [ nontender to palpation], [no guarding], [no appreciable organomegaly] Ext: [no gross muscle atrophy], [no edema], [no contractures] Neuro: [no focal neuro deficits] Psych: [Alert], [oriented], [appropriate affect] - Labs CBC & Chem 7: 03/05/20 05:47 03/05/20 05:47 Labs: Abnormal Lab Results - Last 24 Hours (Table) 03/04/20 03/04/20 03/04/20 Range/Units 21:18 21:18 21:18 RBC (3.80-5.40) m/uL MCV 100.3 H (80.0-100.0) fL Neutrophils # (1.3-7.7) k/uL APTT 21.0 L (22.0-30.0) sec Sodium 132 L (137-145) mmol/L Potassium 3.4 L (3.5-5.1) mmol/L Chloride (98-107) mmol/L Carbon Dioxide 20 L (22-30) mmol/L Glucose 105 H (74-99) mg/dL POC Glucose (mg/dL) (75-99) mg/dL TSH (0.465-4.680) mIU/L Urine Protein (Negative) Urine Ketones (Negative) Ur Leukocyte Esterase (Negative) Urine Mucus (None) /hpf 03/04/20 03/05/20 03/05/20 Range/Units 21:29 00:50 03:07 RBC 3.78 L (3.80-5.40) m/uL MCV 100.6 H (80.0-100.0) fL Neutrophils # 7.8 H (1.3-7.7) k/uL APTT (22.0-30.0) sec Sodium (137-145) mmol/L Potassium (3.5-5.1) mmol/L Chloride (98-107) mmol/L Carbon Dioxide (22-30) mmol/L Glucose (74-99) mg/dL POC Glucose (mg/dL) 113 H (75-99) mg/dL TSH (0.465-4.680) mIU/L Urine Protein Trace H (Negative) Urine Ketones 1+ H (Negative) Ur Leukocyte Esterase Small H (Negative) Urine Mucus Rare H (None) /hpf 03/05/20 03/05/20 03/05/20 Range/Units 03:07 05:47 05:47 RBC 3.60 L (3.80-5.40) m/uL MCV (80.0-100.0) fL Neutrophils # (1.3-7.7) k/uL APTT (22.0-30.0) sec Sodium 130 L 133 L (137-145) mmol/L Potassium (3.5-5.1) mmol/L Chloride 97 L (98-107) mmol/L Carbon Dioxide (22-30) mmol/L Glucose 127 H 109 H (74-99) mg/dL POC Glucose (mg/dL) (75-99) mg/dL TSH (0.465-4.680) mIU/L Urine Protein (Negative) Urine Ketones (Negative) Ur Leukocyte Esterase (Negative) Urine Mucus (None) /hpf 03/05/20 Range/Units 05:47 RBC (3.80-5.40) m/uL MCV (80.0-100.0) fL Neutrophils # (1.3-7.7) k/uL APTT (22.0-30.0) sec Sodium (137-145) mmol/L Potassium (3.5-5.1) mmol/L Chloride (98-107) mmol/L Carbon Dioxide (22-30) mmol/L Glucose (74-99) mg/dL POC Glucose (mg/dL) (75-99) mg/dL TSH 0.425 L (0.465-4.680) mIU/L Urine Protein (Negative) Urine Ketones (Negative) Ur Leukocyte Esterase (Negative) Urine Mucus (None) /hpf Assessment and Plan Assessment: Syncope, likely secondary to newly diagnosed A. 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 Waiting on MRI brain to initiate anticoagulation. All questions answered. She is pending clinical improvement. Likely DC in 1-2 days.]
--- NOTE | 2020-03-05 16:00 | ECHOF ---
Referral Reason:syncope, afib MEASUREMENTS -------- HEIGHT: 160.0 cm WEIGHT: 47.6 kg BP: 121/68 RVIDd: 3.4 cm (< 3.3) IVSd: 1.0 cm (0.6 - 1.1) LVIDd: 3.3 cm (3.9 - 5.3) LVPWd: 1.0 cm (0.6 - 1.1) IVSs: 1.4 cm LVIDs: 2.1 cm LVPWs: 1.2 cm LA Diam: 3.1 cm (2.7 - 3.8) LAESV Index (A-L): 26.36 ml/m Ao Diam: 2.8 cm (2.0 - 3.7) AV Cusp: 2.0 cm (1.5 - 2.6) MV EXCURSION: 14.100 mm (> 18.000) MV EF SLOPE: 69 mm/s (70 - 150) EPSS: 0.6 cm MV E Bharathi: 1.34 m/s MV DecT: 215 ms MV A Bharathi: 0.73 m/s MV E/A Ratio: 1.84 RAP: 15.00 mmHg RVSP: 46.55 mmHg FINDINGS -------- Sinus rhythm. This was a technically adequate study. The left ventricular size is normal. Left ventricular wall thickness is normal. Overall left vent ricular systolic function is normal with, an EF between 55 - 60 %. The right ventricle is mildly enlarged. Normal LA size by volume 22+/-6 ml/m2. The right atrial size is normal. Interatrial and interventricular septum intact. The aortic valve is trileaflet, and appears structurally normal. No aortic stenosis or regurgitation. The mitral valve is normal. Mild mitral regurgitation is present. Mild tricuspid regurgitation present. There is mild to moderate pulmonary hypertension. The right ventricular systolic pressure, as measured by Doppler, is 46.55mmHg. Trace/mild (physiologic) pulmonic regurgitation. The aortic root size is normal. The inferior vena cava is dilated with poor inspiratory collapse which is consistent with estimated r ight atrial pressure of 15 mmHg. There is no pericardial effusion. CONCLUSIONS -------- 1. Sinus rhythm. 2. Left ventricular wall thickness is normal. 3. Overall left ventricular systolic function is normal with, an EF between 55 - 60 %. 4. The right ventricle is mildly enlarged. 5. Normal LA size by volume 22+/-6 ml/m2. 6. The aortic valve is trileaflet, and appears structurally normal. No aortic stenosis or regurgitati on. 7. Mild mitral regurgitation is present. 8. Mild tricuspid regurgitation present. 9. There is mild to moderate pulmonary hypertension. 10. Trace/mild (physiologic) pulmonic regurgitation. 11. The inferior vena cava is dilated with poor inspiratory collapse which is consistent with estimat ed right atrial pressure of 15 mmHg. 12. There is no pericardial effusion. SHIPPING AND RECEIVING: Bekah Moreira RDCS
--- NOTE | 2020-03-05 16:07 | P.CRDCN ---
History of Present Illness Consult date: 03/05/20 History of present illness: This is a 85-year-old female with history of hypertensive cardiac vascular disease being followed by Dr. Hood. Yesterday patient was bending and doing something with her dishes, suddenly she started to feel dizzy as if she is going to pass out. She tried to sit down but patient lost consciousness and fell. Had injury to her forehead. She claims that she was there for several minutes and then woke up. When she woke up she felt nauseous and mildly dizzy. By the time. Her called paramedics and brought her to the hospital. Upon arrival of paramedics, a she started feeling palpitations. She was found to be in atrial fibrillation. She denied any chest pain. She was started on IV Cardizem, last night. She converted to sinus rhythm and has stayed in sinus rhythm since then. 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 She is going to have an MRI. She was not started on anticoagulation therapy because of fear of the tumor. Given her age and risk factors, patient would be candidate for long-term anticoagulation. The etiology of the syncope is unclear. We'll continue to monitor her for any bradyarrhythmias. Patient may go on event monitor that she be discharged. We'l l continue to monitor her for any postural hypotension. Echocardiogram to be done. Thyroid function test to be done. Review of Systems Normal Past Medical History Past Medical History: Asthma, GERD/Reflux, Hypertension History of Any Multi-Drug Resistant Organisms: None Reported Past Surgical History: Appendectomy, Hysterectomy Additional Past Surgical History / Comment(s): Lumpectomy Past Psychological History: No Psychological Hx Reported Smoking Status: Never smoker Past Alcohol Use History: Daily, Occasional Past Drug Use History: None Reported Medications and Allergies Home Medications Medication Instructions Recorded Confirmed Type Nebivolol [Bystolic] 5 mg PO DAILY 11/08/17 03/04/20 History Lisinopril-Hctz 10-12.5 mg 1 tab PO DAILY 03/04/20 03/04/20 History [Zestoretic 10-12.5] Multivitamins, Thera [Multivitamin 1 tab PO DAILY 03/04/20 03/04/20 History (formulary)] Pantoprazole Sodium [Protonix] 20 mg PO DAILY 07/07/20 07/07/20 History traZODone HCL 100 mg PO HS 03/04/20 03/04/20 History Allergies Allergy/AdvReac Type Severity Reaction Status Date / Time tramadol Allergy Severe Nausea & Verified 03/04/20 22:02 Vomiting & Diarrhea Physical Exam Vitals: Vital Signs Temp Pulse Pulse Pulse Pulse Pulse Resp 03/05/20 15:25 98.1 F 62 64 53 L 16 03/05/20 11:50 97.8 F 55 L 16 03/05/20 08:00 61 18 03/05/20 04:00 70 18 03/05/20 02:00 78 18 03/04/20 23:00 109 H 18 03/04/20 20:44 97.7 F 113 H 19 BP BP BP BP BP Pulse Ox 03/05/20 15:25 191/86 180/88 159/79 96 03/05/20 11:50 155/76 98 03/05/20 08:00 138/75 96 03/05/20 04:00 123/78 95 03/05/20 02:00 121/68 96 03/04/20 23:00 130/95 96 03/04/20 20:44 143/97 96 Intake and Output 03/05/20 03/05/20 03/05/20 06:59 14:59 22:59 Intake Total 35 240 Output Total 1600 800 Balance -9036 -560 Intake: Intake, IV Titration 35 Amount Diltiazem 125 mg In 35 Sodium Chloride 0.9% 100 ml @ 5 MG/HR 5 mls/hr IV .Q24H [facility] Rx#:[id number] Oral 240 Output: Urine 1600 800 Other: Voiding Method Bedside Commode Bedside Commode # Voids 2 1 Weight 47.627 kg 47.627 kg GENERAL EXAM: Patient is alert and oriented and doesn't appear to be in any acute distress HEENT: Normocephalic. Normal reaction of pupils, equal size, normal range of extraocular motion. No erythema or exudates in the throat. NECK: No masses, no nuchal rigidity. CHEST: No chest wall deformity. LUNGS: Equal air entry with no crackles or wheeze. HEART: S1 and S2 normal with no audible mumurs or gallops. Regular rhythm, femorals equal on both sides.. ABDOMEN: No hepatosplenomegaly, normal bowel sounds, no guarding or rigidity. SKIN: No rashes CENTRAL NERVOUS SYSTEM: No focal deficits. EXTREMITIES: No cyanosis, clubbing or edema.] Results 03/05/20 05:47 03/05/20 05:47 Cardiac Enzymes 03/04/20 03/04/20 03/05/20 Range/Units 21:18 21:18 00:02 AST 33 (14-36) U/L Troponin I <0.012 <0.012 (0.000-0.034) ng/mL 03/05/20 Range/Units 03:07 AST (14-36) U/L Troponin I <0.012 (0.000-0.034) ng/mL Coagulation 03/04/20 Range/Units 21:18 PT 11.6 (9.0-12.0) sec APTT 21.0 L (22.0-30.0) sec CBC 03/04/20 03/05/20 03/05/20 Range/Units 21:18 03:07 05:47 WBC 6.2 9.5 8.5 (3.8-10.6) k/uL RBC 3.82 3.78 L 3.60 L (3.80-5.40) m/uL Hgb 12.6 12.8 11.5 (11.4-16.0) gm/dL Hct 38.3 38.0 36.0 (34.0-46.0) % Plt Count 246 262 242 (150-450) k/uL Comprehensive Metabolic Panel 03/04/20 03/05/20 03/05/20 Range/Units 21:18 03:07 05:47 Sodium 132 L 130 L 133 L (137-145) mmol/L Potassium 3.4 L 4.4 4.6 (3.5-5.1) mmol/L Chloride 99 97 L 100 (98-107) mmol/L Carbon Dioxide 20 L 24 25 (22-30) mmol/L BUN 13 15 15 (7-17) mg/dL Creatinine 0.65 0.68 0.64 (0.52-1.04) mg/dL Glucose 105 H 127 H 109 H (74-99) mg/dL Calcium 9.8 9.5 9.2 (8.4-10.2) mg/dL AST 33 (14-36) U/L ALT 19 (4-34) U/L Alkaline Phosphatase 56 (38-126) U/L Total Protein 6.5 (6.3-8.2) g/dL Albumin 4.4 (3.5-5.0) g/dL Current Medications Generic Name Dose Route Start Last Admin Trade Name Freq PRN Reason Stop Dose Admin Heparin Sodium (Porcine) 5,000 unit 03/05/20 08:00 03/05/20 09:30 Heparin SQ Not Given Q8HR [facility] Diltiazem HCl 125 mg/ Sodium 125 mls @ 5 mls/hr 03/04/20 22:15 03/04/20 22:31 Chloride IV 5 mg/hr .Q24H [facility] 5 mls/hr Administration 5 MG/HR Multivitamins 1 each 03/05/20 09:00 03/05/20 09:30 Theragran PO Not Given DAILY [facility] Naloxone HCl 0.2 mg 03/04/20 22:39 Narcan IV Q2M PRN Opioid Reversal Pantoprazole Sodium 40 mg 03/05/20 09:00 03/05/20 09:30 Protonix PO Not Given DAILY [facility] Trazodone HCl 100 mg 03/05/20 21:00 Desyrel PO HS [facility] Intake and Output 03/05/20 03/05/20 03/05/20 06:59 14:59 22:59 Intake Total 35 240 Output Total 1600 800 Balance -1565 -560 Intake: Intake, IV Titration 35 Amount Diltiazem 125 mg In 35 Sodium Chloride 0.9% 100 ml @ 5 MG/HR 5 mls/hr IV .Q24H [facility] Rx#:[id number] Oral 240 Output: Urine 1600 800 Other: Voiding Method Bedside Commode Bedside Commode # Voids 2 1 Weight 47.627 kg 47.627 kg Patient Weight 03/06/20 06:59 Weight 47.627 kg 03/05/20 05:47 03/05/20 05:47 EKG Interpretations (text) Initial EKG showed atrial fibrillation with RVR. Subsequent EKG showed sinus rhythm Assessment and Plan (1) Essential hypertension Current Visit: Yes Status: Acute Code(s): I10 - ESSENTIAL (PRIMARY) HYPERTENSION SNOMED Code(s): 17397195 (2) Afib Current Visit: Yes Status: Acute Code(s): I48.91 - UNSPECIFIED ATRIAL FIBRILLATION SNOMED Code(s): 68065436 (3) Blunt head trauma Current Visit: Yes Status: Acute Code(s): S09.8XXA - OTHER SPECIFIED INJURIES OF HEAD, INITIAL ENCOUNTER SNOMED Code(s): 24365671 (4) Syncope Current Visit: Yes Status: Acute Code(s): R55 - SYNCOPE AND COLLAPSE SNOMED Code(s): 086430408 Plan: Patient is back in sinus rhythm. Patient has questionable brain tumor. Patient is going to have MRI. Neurology consult. If there is no contraindication, patient should go on and decortication therapy. Continue to monitor for bradyarrhythmias and postural hypotension. If none is documented, patient will need an event monitor as an outpatient. Further recommendations depend upon the clinical course
[2020-03-05] MEDS: LISINOPRIL 2.5 MG TAB PO SCH (17:04)
--- NOTE | 2020-03-05 19:00 | P.CNNES ---
History of Present Illness Consult date: 03/05/20 Requesting physician: Natalia Saucedo Reason for Consult: Syncope History of Present Illness: Patient is a 85-year-old female, otherwise very healthy, states that she had just finished eating her dinner yesterday at 7 PM. She was picking up dishes feeling fine. She was standing up next to the sink, suddenly she started feeling funny, like something is not right. She wanted to have a seat, but she could not make it, and fell backwards hitting the back of the head on the hardwood floor. She was out for a very short while. She woke up to her standing over her. There was no seizure-like activity noted. No tongue bite or urinary incontinence. Patient's called EMS. On their arrival, she was laying supine on the mer would floor oriented 4. She was complaining of slight being dizzy and nauseated. her blood pressure was 209/98, pulse rate 132, respiration 18, saturation 96%. Patient was noted to have atrial fibrillation on the rhythm. Her blood pressure did am down finally to 144/88. On arrival to the hospital her blood pressure was 143/[address] head showed cerebral atrophy. Possible right-sided sellar mass. 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 CT of the cervical spine negative. EKG confirmed atrial fibrillation with rapid ventricular rate. Patient did convert to sinus rhythm. 2-D echo showed normal left-ventricular wall thickness. EF is between 55-60%. Normal left atrial size. Mild to moderate pulmonary hypertension. Mild mitral regurgitation. Chest x-ray showed mild pulmonary fibrotic changes. Mild COPD. Patient subsequently underwent MRI of the brain to rule out pituitary mass, which came back completely negative. There is age-related atrophy. No acute process. No hemorrhage. Patient's sodium was 132, normal renal functions. Liver panel normal. At present patient denies any focal symptoms. Review of Systems On 14 point of review systems reviewed, unremarkable. Denies any visual symptoms denies any chest pain shortness of breath. Past Medical History Past Medical History: Asthma, GERD/Reflux, Hypertension History of Any Multi-Drug Resistant Organisms: None Reported Past Surgical History: Appendectomy, Hysterectomy Additional Past Surgical History / Comment(s): Lumpectomy Past Psychological History: No Psychological Hx Reported Smoking Status: Never smoker Past Alcohol Use History: Daily, Occasional Past Drug Use History: None Reported Medications and Allergies Home Medications Medication Instructions Recorded Confirmed Type Nebivolol [Bystolic] 5 mg PO DAILY 11/08/17 03/04/20 History Lisinopril-Hctz 10-12.5 mg 1 tab PO DAILY 03/04/20 03/04/20 History [Zestoretic 10-12.5] Multivitamins, Thera [Multivitamin 1 tab PO DAILY 03/04/20 03/04/20 History (formulary)] Pantoprazole Sodium [Protonix] 20 mg PO DAILY 03/04/20 03/04/20 History traZODone HCL 100 mg PO HS 03/04/20 03/04/20 History Allergies Allergy/AdvReac Type Severity Reaction Status Date / Time tramadol Allergy Severe Nausea & Verified 03/04/20 22:02 Vomiting & Diarrhea Physical Examination - Vital Signs Vital Signs: Vital Signs Temp Pulse Pulse Pulse Pulse Pulse Resp 03/05/20 15:25 98.1 F 62 64 53 L 16 03/05/20 11:50 97.8 F 55 L 16 03/05/20 08:00 61 18 03/05/20 04:00 70 18 03/05/20 02:00 78 18 03/04/20 23:00 109 H 18 03/04/20 20:44 97.7 F 113 H 19 BP BP BP BP BP Pulse Ox 03/05/20 15:25 191/86 180/88 159/79 96 03/05/20 11:50 155/76 98 03/05/20 08:00 138/75 96 03/05/20 04:00 123/78 95 03/05/20 02:00 121/68 96 03/04/20 23:00 130/95 96 03/04/20 20:44 143/97 96 Intake and Output 03/05/20 03/05/20 03/05/20 06:59 14:59 22:59 Intake Total 35 240 240 Output Total 1600 800 Balance -1565 560 240 Intake: Intake, IV Titration 35 Amount Diltiazem 125 mg In 35 Sodium Chloride 0.9% 100 ml @ 5 MG/HR 5 mls/hr IV .Q24H [facility] Rx#:[id number] Oral 240 240 Output: Urine 1600 800 Other: Voiding Method Bedside Commode Bedside Commode # Voids 2 1 Weight 47.627 kg 47.627 kg On examination patient is an elderly female, in no acute distress. Patient is alert awake oriented times and person. Speech and language functions are normal. Attention and concentration fund of knowledge is adequate. On cranial nerve examination pupils are round and reactive to light, visual licona are full to confrontation, extraocular muscles are intact. Face is symmetric, tongue produces to a midline. Palatal elevation and sensation normal hearing. Hearing and shoulder shrug normal. On muscle strength testing there is no pronator drift and the strength is normal in arms and legs distally and proximally. Effexor 1+ plantars downgoing. Sensory touch is equal. No ataxia for [id number] testing. Tone and bulk of muscles normal. Gait normal. No obvious bruit, S1 and S2 audible. Peripheral pulses present. Abdomen soft nontender Results - Laboratory Findings CBC and BMP: 03/05/20 05:47 03/05/20 05:47 Abnormal Lab Findings: Abnormal Labs 03/04/20 03/04/20 03/04/20 21:18 21:18 21:18 RBC MCV 100.3 H Neutrophils # APTT 21.0 L D-Dimer Sodium 132 L Potassium 3.4 L Chloride Carbon Dioxide 20 L Glucose 105 H POC Glucose (mg/dL) TSH Urine Protein Urine Ketones Ur Leukocyte Esterase Urine Mucus 03/04/20 03/05/20 03/05/20 21:29 00:50 03:07 RBC 3.78 L MCV 100.6 H Neutrophils # 7.8 H APTT D-Dimer Sodium Potassium Chloride Carbon Dioxide Glucose POC Glucose (mg/dL) 113 H TSH Urine Protein Trace H Urine Ketones 1+ H Ur Leukocyte Esterase Small H Urine Mucus Rare H 03/05/20 03/05/20 03/05/20 03:07 05:47 05:47 RBC 3.60 L MCV Neutrophils # APTT D-Dimer Sodium 130 L 133 L Potassium Chloride 97 L Carbon Dioxide Glucose 127 H 109 H POC Glucose (mg/dL) TSH Urine Protein Urine Ketones Ur Leukocyte Esterase Urine Mucus 03/05/20 03/05/20 05:47 14:38 RBC MCV Neutrophils # APTT D-Dimer 0.86 H Sodium Potassium Chloride Carbon Dioxide Glucose POC Glucose (mg/dL) TSH 0.425 L Urine Protein Urine Ketones Ur Leukocyte Esterase Urine Mucus Assessment and Plan Assessment: * Syncopal spell, likely related to arrhythmia. Patient was diagnosed with atrial fibrillation with rapid ventricular rate. Plan: * Patient's MRI of the brain was completely normal. No evidence of mass, or intracranial hemorrhage. * Neurologically clear for placing on anticoagulation for atrial fibrillation, if indicated from cardiology standpoint. * I will check carotid Doppler to rule out stenosis.
[2020-03-05] MEDS: traZODone HCL 100 MG TAB PO SCH (20:28)
--- NOTE | 2020-03-05 22:04 | US ---
EXAMINATION TYPE: US carotid duplex BILAT DATE OF EXAM: 03/05/2020 COMPARISON: CT, MR CLINICAL HISTORY: Syncope. Syncope. Patient has A Fib and HTN. EXAM MEASUREMENTS: RIGHT: Peak Systolic Velocity (PSV) cm/sec ----- Right CCA: 75.8 ----- Right ICA: 86.2 ----- Right ECA: 76.5 ICA/CCA ratio: 1.1 RIGHT: End Diastole cm/sec ----- Right CCA: 18.9 ----- Right ICA: 17.6 ----- Right ECA: 8.4 LEFT: Peak Systolic Velocity (PSV) cm/sec ----- Left CCA: 75.8 ----- Left ICA: 60.3 ----- Left ECA: 99.5 ICA/CCA ratio: 0.8 LEFT: End Diastole cm/sec ----- Left CCA: 16.3 ----- Left ICA: 12.0 ----- Left ECA: 0.0 VERTEBRALS (direction of flow): Right Vertebral: Antegrade Left Vertebral: Antegrade Rhythm: Normal Intimal thickening seen bilaterally. Minimal plaque seen bilateral bulbs. No elevated velocities obta ined. No stenosis seen at this time. IMPRESSION: There is antegrade flow in the vertebral arteries. Images and measurements suggest less than 20% stenosis in both internal carotid arteries. Criteria for Assigning % of Stenosis / Diameter reduction (Estimation based on the indirect measurements of the internal carotid artery velocities (ICA PSV). 1. Normal (no stenosis)=ICA PSV < 125 cm/s: ratio < 2.0: ICA EDV<40 cm/s. 2. Less than 50% stenosis=ICA PSV < 125 cm/s: ratio < 2.0: ICA EDV<40 cm/s. 3. 50 to 69% stenosis=ICA PSV of 125 to 230 cm/s: ration 2.0 ? 4.0: ICA EDV 40-100 cm/s. 4. Greater than 70% stenosis to near occlusion= ICA PSV > 230 cm/s: ratio > 4.0: ICA EDV > 100 cm/s. 5. Near occlusion= ICA PSV velocities may be low or undetectable: variable ratio and ICA EDV. 6. Total occlusion=unable to detect flow.
[2020-03-05] MEDS: SODIUM CHLORIDE 0.9% 1,000 ML IV SCH (23:35)
[2020-03-06] MEDS: SODIUM CHLORIDE 0.9% 1,000 ML IV SCH ×2 (06:19→10:19)
[2020-03-06 07:35] LABS: HCT 35.1 % (34.0-46.0); MCH 34.1 pg (25.0-35.0); MCHC 34.1 g/dL (31.0-37.0); MCV 100.1 fL (80.0-100.0); Platelet Count 232 k/uL (150-450); WBC 6.5 k/uL (3.8-10.6)
[2020-03-06 08:00] LABS: African American GFR (CKD) >90 (>60 ml/min/1.73 sqM); Anion Gap 3 mmol/L; Blood Urea Nitrogen 10 mg/dL (7-17); Calcium 8.6 mg/dL (8.4-10.2); Carbon Dioxide 25 mmol/L (22-30); Chloride 106 mmol/L (98-107); Glucose 96 mg/dL (74-99); Non-African American GFR(CKD) 90 (>60 ml/min/1.73 sqM); Potassium 4.1 mmol/L (3.5-5.1); Sodium 134 mmol/L (137-145)
[2020-03-06] MEDS: MULTIVITAMINS, THERA 1 EACH TAB PO SCH (08:40)
[2020-03-06] MEDS: PANTOPRAZOLE 40 MG TABLET PO SCH (08:40)
[2020-03-06] MEDS: LISINOPRIL 2.5 MG TAB PO SCH (08:40)
[2020-03-06] MEDS ORDERED: MECLIZINE 25 MG TAB PO PRN (12:27)
--- NOTE | 2020-03-06 12:37 | P.PN ---
Subjective Progress Note Date: 03/06/20 Patient is still complaining of dizziness and what she describes as benign positional vertigo worse when she moves her head or trying to turn in bed as well as when she gets up to go to the bathroom. She denies any headache or vision change otherwise. No chest pain. Objective - Vital Signs Vital signs: Vital Signs Temp 97.6 F 03/06/20 11:37 Pulse 62 03/06/20 11:37 Resp 16 03/06/20 11:37 BP 172/80 03/06/20 11:37 Pulse Ox 98 03/06/20 07:48 Intake & Output 03/05/20 03/06/20 03/06/20 18:59 06:59 18:59 Intake Total 480 10 240 Output Total 800 480 Balance -320 -470 240 Weight 47.627 kg 46.5 kg Intake: Intake, IV Titration 10 Amount Sodium Chloride 0.9% 1, 10 000 ml @ 100 mls/hr IV . Q10H [facility] Rx#:[id number] Oral 480 240 Output: Urine 800 480 Other: Voiding Method Bedside Commode Bedside Commode # Voids 1 1 - Exam General: The patient is awake and alert, in no distress Eye: there is normal conjunctiva bilaterally. Neck: The neck is supple, there is no JVD. Cardiovascular: Normal S1-S2, no S3-S4, no murmurs. Respiratory: Lungs clear to auscultation bilaterally Gastrointestinal: Abdomen is soft, nontender Musculoskeletal: There is no pedal edema. Neurological:. Speech is normal. Skin: Skin is warm and dry - Labs CBC & Chem 7: 03/06/20 07:19 03/06/20 07:19 Labs: Abnormal Lab Results - Last 24 Hours (Table) 03/05/20 03/05/20 03/06/20 Range/Units 05:47 14:38 07: RBC 3.50 L (3.80-5.40) m/uL MCV 100.1 H (80.0-100.0) fL D-Dimer 0.86 H (<0.60) mg/L FEU Sodium (137-145) mmol/L Creatinine (0.52-1.04) mg/dL TSH 0.425 L (0.465-4.680) mIU/L 03/06/20 Range/Units 07:19 RBC (3.80-5.40) m/uL MCV (80.0-100.0) fL D-Dimer (<0.60) mg/L FEU Sodium 134 L (137-145) mmol/L Creatinine 0.50 L (0.52-1.04) mg/dL TSH (0.465-4.680) mIU/L Assessment and Plan Assessment: 1. New onset atrial fibrillation, converted spontaneously to normal sinus rh ythm after IV Cardizem in the ER. Currently rate well controlled. Slightly bradycardic. Started on anticoagulation with IV heparin and transitioned to oral Rivaroxaban. Cardiology following closely. 2. Syncope/presyncope, may be attributed to A. fib with RVR. Orthostatic blood pressure checked and negative. Carotid Doppler with no significant stenosis. Echocardiogram showed preserved EF with no significant valvular abnormalities. 3. Benign positional vertigo, we will try a trial of meclizine 4. Essential hypertension: Blood pressure not well controlled. Managed by cardiology 5. Subclinical hyperthyroidism: Repeat TSH and free T4 in 6 weeks 6. Brain mass on computed tomography scan (Sella meningioma): Ruled out on MRI of the brain 7. Hyponatremia, improved with IV fluid hydration. possibly secondary to diuretic chronic use. Hydrochlorothiazide discontinued. Anticipate discharge home tomorrow.
--- NOTE | 2020-03-06 15:02 | P.PN ---
Subjective Progress Note Date: 03/06/20 This is a 85-year-old female with history of hypertensive cardiac vascular disease being followed by Dr. Hood. Yesterday patient was bending and doing something with her dishes, suddenly she started to feel dizzy as if she is going to pass out. She tried to sit down but patient lost consciousness and fell. Had injury to her forehead. She claims that she was there for several minutes and then woke up. When she woke up she felt nauseous and mildly dizzy. By the time. Her called paramedics and brought her to the hospital. Upon arrival of paramedics, a she started feeling palpitations. She was found to be in atrial fibrillation. She denied any chest pain. She was started on IV Card izem, last night. She converted to sinus rhythm and has stayed in sinus rhythm since then. 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 She is going to have an MRI. She was not started on anticoagulation therapy because of fear of the tumor. Given her age and risk factors, patient would be candidate for long-term anticoagulation. The etiology of the syncope is unclear. We'll continue to monitor her for any bradyarrhythmias. Patient may go on event monitor that she be discharged. We'll continue to monitor her for any postural hypotension. Echocardiogram to be done. Thyroid function test to be done. 03/06/2020 Patient seen and examined this morning, continues to be in a normal sinus rhythm at this time. She still complains of dizziness, mostly when she changes position, appears to be more vertigo in nature. No significant orthostasis. Blood pressure 164/80 with a heart rate in the 60s, 98% on room air. White blood cell count 6.5, hemoglobin 12.0, platelet count 252. Sodium 134, potassium 4.1, BUN 10, creatinine 0.5. Objective - Vital Signs Vital signs: Vital Signs Temp 97.6 F 03/06/20 11:37 Pulse 62 03/06/20 11:37 Resp 16 03/06/20 11:37 BP 172/80 03/06/20 11:37 Pulse Ox 98 03/06/20 07:48 Intake & Output 03/05/20 03/06/20 03/06/20 18:59 06:59 18:59 Intake Total 944 44 1598 Output Total 800 480 Balance -320 -470 1330 Weight 47.627 kg 46.5 kg Intake: Intake, IV Titration 10 850 Amount Sodium Chloride 0.9% 1, 10 850 000 ml @ 100 mls/hr IV . Q10H [facility] Rx#:[id number] Oral 480 480 Output: Urine 800 480 Other: Voiding Method Bedside Commode Bedside Commode # Voids 1 1 - Exam GENERAL EXAM: Patient is alert and oriented and doesn't appear to be in any acute distress HEENT: Normocephalic. Normal reaction of pupils, equal size, normal range of extraocular motion. No erythema or exudates in the throat. NECK: No masses, no nuchal rigidity. CHEST: No chest wall deformity. LUNGS: Equal air entry with no crackles or wheeze. HEART: S1 and S2 normal with no audible mumurs or gallops. Regular rhythm, femorals equal on both sides.. ABDOMEN: No hepatosplenomegaly, normal bowel sounds, no guarding or rigidity. SKIN: No rashes CENTRAL NERVOUS SYSTEM: No focal deficits. EXTREMITIES: No cyanosis, clubbing or edema.] - Labs CBC & Chem 7: 03/06/20 07:19 03/06/20 07:19 Labs: Abnormal Lab Results - Last 24 Hours (Table) 03/05/20 03/05/20 03/06/20 Range/Units 05:47 14:38 07:19 RBC 3.50 L (3.80-5.40) m/uL MCV 100.1 H (80.0-100.0) fL D-Dimer 0.86 H (<0.60) mg/L FEU Sodium (137-145) mmol/L Creatinine (0.52-1.04) mg/dL TSH 0.425 L (0.465-4.680) mIU/L 03/06/20 Range/Units 07:19 RBC (3.80-5.40) m/uL MCV (80.0-100.0) fL D-Dimer (<0.60) mg/L FEU Sodium 134 L (137-145) mmol/L Creatinine 0.50 L (0.52-1.04) mg/dL TSH (0.465-4.680) mIU/L Assessment and Plan Plan: Assessment and plan #1 syncope, MRI negative #2 paroxysmal atrial fibrillation, new onset #3 blunt head trauma #4 hypertension Plan Echocardiogram with Doppler study revealed a normal left ventricular systolic function. We will start the patient on Antivert 25 mg. Patient has also been started on xarelto 20 mg daily for anticoagulation. DNP note has been reviewed, I agree with a documented findings and plan of care. Patient was seen and examined.
--- NOTE | 2020-03-06 15:39 | P.PN ---
Subjective Progress Note Date: 03/06/20 Patient was seen for a follow-up. Patient's and daughter were also present today. Apparently patient is feeling worse today. Patient was slightly dizzy yesterday but today it has got 3 times worse. When she is sitting, she feels lightheaded. However if she tries to get up, or lays back or rolls over in the bed, she starts spinning. She never had this problem before. Denies any focal symptoms otherwise. Patient's telemetry showing sinus bradycardia, sinus rhythm. Objective - Vital Signs Vital signs: Vital Signs Temp 97.6 F 03/06/20 11:37 Pulse 62 03/06/20 11:37 Resp 16 03/06/20 11:37 BP 172/80 03/06/20 11:37 Pulse Ox 98 03/06/20 07:48 Intake & Output 03/05/20 03/06/20 03/06/20 18:59 06:59 18:59 Intake Total 690 54 3669 Output Total 800 480 Balance -320 -470 1330 Weight 47.627 kg 46.5 kg Intake: Intake, IV Titration 10 850 Amount Sodium Chloride 0.9% 1, 10 850 000 ml @ 100 mls/hr IV . Q10H [facility] Rx#:[id number] Oral 480 480 Output: Urine 800 480 Other: Voiding Method Bedside Commode Bedside Commode # Voids 1 1 - Exam Patient's mental status, speech and language functions are normal. Pupils are round and reactive to light. Visual licona are full. Extraocular muscles are intact. Patient is very mild nystagmus looking to the left. Face is symmetric, tongue protrudes the midline. Palatal elevation and sensation normal. On muscle strength testing there is no pronator drift. The strength is normal. No ataxia for [id number] testing. No ataxia for [id number]-[id number] testing. Gait deferred. - Labs CBC & Chem 7: 03/06/20 07:19 03/06/20 07:19 Labs: Abnormal Lab Results - Last 24 Hours (Table) 03/05/20 03/05/20 03/06/20 Range/Units 05:47 14:38 07:19 RBC 3.50 L (3.80-5.40) m/uL MCV 100.1 H (80.0-100.0) fL D-Dimer 0.86 H (<0.60) mg/L FEU Sodium (137-145) mmol/L Creatinine (0.52-1.04) mg/dL TSH 0.425 L (0.465-4.680) mIU/L 03/06/20 Range/Units 07:19 RBC (3.80-5.40) m/uL MCV (80.0-100.0) fL D-Dimer (<0.60) mg/L FEU Sodium 134 L (137-145) mmol/L Creatinine 0.50 L (0.52-1.04) mg/dL TSH (0.465-4.680) mIU/L Assessment and Plan Assessment: * Syncopal spell, likely related to arrhythmia. Patient was diagnosed with atrial fibrillation with rapid ventricular rate. * New onset dizziness, vertigo, probably due to peripheral vestibular dysfunction. This can be due to labyrinthitis versus BPPV. Plan: * Patient's MRI of the brain was completely normal. No evidence of mass, CVA or intracranial hemorrhage. * Patient will be started on Xarelto from this evening. * Carotid Doppler showed no significant stenosis. Antegrade flow in both vertebral arteries. * Regarding dizziness, agree with Antivert. * If symptoms persist, suggest Medrol Dosepak and perhaps vestibular rehabilitation.
[2020-03-06 16:57] LABS: Glucose,Whole Blood 133 mg/dL (75-99)
[2020-03-06] MEDS ORDERED: RIVAROXABAN 20 MG TAB PO SCH (17:30)
[2020-03-06] MEDS: MECLIZINE 25 MG TAB PO SCH ×2 (18:03→20:01)
[2020-03-06] MEDS: HEPARIN SODIUM,PORCINE 5,000 UNIT/ML 1 ML VIAL SQ SCH (18:41)
[2020-03-06] MEDS: traZODone HCL 100 MG TAB PO SCH (20:01)
[2020-03-07] MEDS: SODIUM CHLORIDE 0.9% 1,000 ML IV SCH (05:29)
[2020-03-07 07:25] LABS: HCT 36.5 % (34.0-46.0); HGB 11.7 gm/dL (11.4-16.0); MCH 32.4 pg (25.0-35.0); MCHC 32.1 g/dL (31.0-37.0); MCV 101.1 fL (80.0-100.0); Mean Platelet Volume 7.3; Platelet Count 217 k/uL (150-450); RBC 3.61 m/uL (3.80-5.40); WBC 6.9 k/uL (3.8-10.6)
[2020-03-07 07:39] LABS: African American GFR (CKD) >90 (>60 ml/min/1.73 sqM); Anion Gap 4 mmol/L; Blood Urea Nitrogen 9 mg/dL (7-17); Calcium 8.7 mg/dL (8.4-10.2); Carbon Dioxide 26 mmol/L (22-30); Chloride 105 mmol/L (98-107); Glucose 92 mg/dL (74-99); Non-African American GFR(CKD) 88 (>60 ml/min/1.73 sqM); Potassium 4.3 mmol/L (3.5-5.1); Sodium 135 mmol/L (137-145)
[2020-03-07] MEDS: LISINOPRIL 2.5 MG TAB PO SCH (08:43)
[2020-03-07] MEDS: MECLIZINE 25 MG TAB PO SCH (08:43)
[2020-03-07] MEDS: MULTIVITAMINS, THERA 1 EACH TAB PO SCH (08:43)
[2020-03-07] MEDS: PANTOPRAZOLE 40 MG TABLET PO SCH (08:43)
[2020-03-07 09:05] VITALS: RESP 16
--- NOTE | 2020-03-07 11:22 | P.DS ---
Providers Date of admission: 03/04/20 22:39 Expected date of discharge: 03/07/20 Attending physician: Karl Rockwell MD Consults: 03/04/20 22:40 Consult Physician Urgent Consulting Provider: [facility] Consult Reason/Comments: acute syncope, afib with rvr Do you want consulting provider notified?: Yes 03/05/20 13:23 Consult Physician Routine Consulting Provider: Kun Swanson Consult Reason/Comments: Dr Jones Do you want consulting provider notified?: Yes Primary care physician: Wilfred [facility] Course: This is a 85-year-old female with past medical history noted below significant for essential hypertension who presented to the emergency room after having a syncopal episode at home. Patient was evaluated in the ER and was found to have evidence of atrial fibrillation with rapid ventricular response and a heart rate up to 116. She admitted to the hospital for further management of her medical problems noted below. 1. New onset atrial fibrillation, converted spontaneously to normal sinus rhythm after IV Cardizem in the ER. Currently rate well controlled. Slightly bradycardic. Started on anticoagulation with IV heparin and transitioned to or al Rivaroxaban. Patient was seen and evaluated by cardiology. Heart rate remained in the low 60s. No need for beta blockers at this time. Plan for event monitor as an outpatient with cardiology. 2. Syncope/presyncope, may be attributed to A. fib with RVR. Orthostatic blood pressure checked and negative. Carotid Doppler with no significant stenosis. Echocardiogram showed preserved EF with no significant valvular abnormalities. 3. Benign positional vertigo, improved with a trial of meclizine. If continued to worsen outpatient patient may benefit from a Medrol Dosepak as recommended by neurology. 4. Essential hypertension: Blood pressure regimen adjusted during this admission. Was discharged on lisinopril 10 mg once a day. Patient scheduled for follow-up with her PCP the next 3 days. Also have home care with visiting nurse scheduled to check her blood pressure. 5. Subclinical hyperthyroidism: Repeat TSH and free T4 in 6 weeks 6. Brain mass on computed tomography scan (Sella meningioma): Ruled out on MRI of the brain 7. Hyponatremia, improved with IV fluid hydration. possibly secondary to diuretic chronic use. Hydrochlorothiazide discontinued. 8. Physical debility: PT/OT evaluated the patient. Given prescription for a walker. Patient will be discharged home in a stable condition. For further details about this hospitalization please refer to the electronic chart. Patient Condition at Discharge: Serious Plan - Discharge Summary Discharge Rx Participant: No New Discharge Prescriptions: New Meclizine [Antivert] 25 mg PO TID #30 tab Lisinopril [Prinivil] 10 mg PO DAILY #30 tab Rivaroxaban [Xarelto] 20 mg PO W/SUPPER #30 tab Continue traZODone HCL 100 mg PO HS Pantoprazole Sodium [Protonix] 20 mg PO DAILY Multivitamins, Thera [Multivitamin (formulary)] 1 tab PO DAILY Discontinued Nebivolol [Bystolic] 5 mg PO DAILY Lisinopril-Hctz 10-12.5 mg [Zestoretic 10-12.5] 1 tab PO DAILY Discharge Medication List Multivitamins, Thera [Multivitamin (formulary)] 1 tab PO DAILY 03/04/20 [History] Pantoprazole Sodium [Protonix] 20 mg PO DAILY 03/04/20 [History] traZODone HCL 100 mg PO HS 03/04/20 [History] Lisinopril [Prinivil] 10 mg PO DAILY #30 tab 03/07/20 [Rx] Meclizine [Antivert] 25 mg PO TID #30 tab 03/07/20 [Rx] Rivaroxaban [Xarelto] 20 mg PO W/SUPPER #30 tab 03/07/20 [Rx] Follow up Appointment(s)/Referral(s): Wilfred Hood MD [Primary Care Provider] - 1-2 days [facility], [NON-STAFF] - Activity/Diet/Wound Care/Special Instructions: Patient requires a walker at discharged secondary to dx: unsteady gait Discharge Disposition: HOME WITH HOME HEALTH SERVICES
[2020-03-07 11:51] VITALS: BP 179/85; PULSE 62; TEMP 98.2
[2020-03-07 12:46] LABS: Basophils % (A) 1 %; Eosinophils % (A) 6 %; Lymphocytes % (A) 24 %; Monocytes % (A) 7 %; Neutrophils % (A) 61 %
[2020-03-07 12:47] LABS: Basophils # (A) 0.1 k/uL (0-0.2); Eosinophils # (A) 0.4 k/uL (0-0.7); Lymphocytes # (A) 1.7 k/uL (1.0-4.8); Monocytes # (A) 0.5 k/uL (0-1.0); Neutrophils # (A) 4.2 k/uL (1.3-7.7)
[2020-03-07 14:09] VITALS: BMI 18.2
--- NOTE | 2020-03-07 14:24 | P.PN ---
Subjective Progress Note Date: 03/07/20 This is a 85-year-old female with history of hypertensive cardiac vascular disease being followed by Dr. Hood. Yesterday patient was bending and doing something with her dishes, suddenly she started to feel dizzy as if she is going to pass out. She tried to sit down but patient lost consciousness and fell. Had injury to her forehead. She claims that she was there for several minutes and then woke up. When she woke up she felt nauseous and mildly dizzy. By the time. Her called paramedics and brought her to the hospital. Upon arrival of paramedics, a she started feeling palpitations. She was found to be in atrial fibrillation. She denied any chest pain. She was started on IV Card izem, last night. She converted to sinus rhythm and has stayed in sinus rhythm since then. 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 She is going to have an MRI. She was not started on anticoagulation therapy because of fear of the tumor. Given her age and risk factors, patient would be candidate for long-term anticoagulation. The etiology of the syncope is unclear. We'll continue to monitor her for any bradyarrhythmias. Patient may go on event monitor that she be discharged. We'll continue to monitor her for any postural hypotension. Echocardiogram to be done. Thyroid function test to be done. 03/06/2020 Patient seen and examined this morning, continues to be in a normal sinus rhythm at this time. She still complains of dizziness, mostly when she changes position, appears to be more vertigo in nature. No significant orthostasis. Blood pressure 164/80 with a heart rate in the 60s, 98% on room air. White blood cell count 6.5, hemoglobin 12.0, platelet count 252. Sodium 134, potassium 4.1, BUN 10, creatinine 0.5. 03/07/2020 Patient seen and examined this morning, overall doing well. Her dizziness is significantly improved. No further episodes of atrial fibrillation noted on the monitor. Blood pressure 134/73, heart rate in the 60s, 96% on room air. White blood cell count 6.9, hemoglobin 11.7, platelet count 217. Sodium 135, potassium 4.3, BUN 9, creatinine 0.5. Objective - Vital Signs Vital signs: Vital Signs Temp 98.2 F 03/07/20 11:49 Pulse 62 03/07/20 11:49 Resp 16 03/07/20 11:49 BP 179/85 03/07/20 11:49 Pulse Ox 97 03/07/20 11:49 Intake & Output 03/06/20 03/07/20 03/07/20 18:59 06:59 18:59 Intake Total 1570 236 Balance 1570 236 Weight 46.72 kg 46.72 kg Intake: Intake, IV Titration 850 Amount Sodium Chloride 0.9% 1, 850 000 ml @ 100 mls/hr IV . Q10H [facility] Rx#:[id number] Oral 720 236 Other: Voiding Method Bedside Commode # Voids 4 3 1 # Bowel Movements 1 - Exam GENERAL EXAM: Patient is alert and oriented and doesn't appear to be in any acute distress HEENT: Normocephalic. Normal reaction of pupils, equal size, normal range of extraocular motion. No erythema or exudates in the throat. NECK: No masses, no nuchal rigidity. CHEST: No chest wall deformity. LUNGS: Equal air entry with no crackles or wheeze. HEART: S1 and S2 normal with no audible mumurs or gallops. Regular rhythm, femorals equal on both sides.. ABDOMEN: No hepatosplenomegaly, normal bowel sounds, no guarding or rigidity. SKIN: No rashes CENTRAL NERVOUS SYSTEM: No focal deficits. EXTREMITIES: No cyanosis, clubbing or edema.] - Labs CBC & Chem 7: 03/07/20 06:28 03/07/20 06:28 Labs: Abnormal Lab Results - Last 24 Hours (Table) 03/06/20 03/07/20 03/07/20 Range/Units 16:45 06:28 06:28 RBC 3.61 L (3.80-5.40) m/uL MCV 101.1 H (80.0-100.0) fL Sodium 135 L (137-145) mmol/L POC Glucose (mg/dL) 133 H (75-99) mg/dL Assessment and Plan Plan: Assessment and plan #1 syncope, MRI negative #2 paroxysmal atrial fibrillation, new onset #3 blunt head trauma #4 hypertension Plan From cardiology's perspective, patient may be able to be discharged home today. We will recommend an event monitor on discharge, follow-up with Dr. Saucedo in the office in one to 2 weeks. DNP note has been reviewed, I agree with a documented findings and plan of care. Patient was seen and examined.
--- NOTE | 2020-03-07 15:54 | P.PN ---
Subjective Progress Note Date: 03/07/20 Patient was seen for a follow-up. Patient's and daughter were also present today. Patient states she is doing much better. Her symptoms are almost resolved. Objective - Vital Signs Vital signs: Vital Signs Temp 98.2 F 03/07/20 11:49 Pulse 62 03/07/20 11:49 Resp 16 03/07/20 11:49 BP 179/85 03/07/20 11:49 Pulse Ox 97 03/07/20 11:49 Intake & Output 03/06/20 03/07/20 03/07/20 18:59 06:59 18:59 Intake Total 1570 236 Balance 1570 236 Weight 46.72 kg 46.72 kg Intake: Intake, IV Titration 850 Amount Sodium Chloride 0.9% 1, 850 000 ml @ 100 mls/hr IV . Q10H [facility] Rx#:[id number] Oral 720 236 Other: Voiding Method Bedside Commode # Voids 4 3 1 # Bowel Movements 1 - Exam Patient's mental status, speech and language functions are normal. Detailed testing deferred. Patient is getting ready for discharge. - Labs CBC & Chem 7: 03/07/20 06:28 03/07/20 06:28 Labs: Abnormal Lab Results - Last 24 Hours (Table) 03/06/20 03/07/20 03/07/20 Range/Units 16:45 06:28 06:28 RBC 3.61 L (3.80-5.40) m/uL MCV 101.1 H (80.0-100.0) fL Sodium 135 L (137-145) mmol/L POC Glucose (mg/dL) 133 H (75-99) mg/dL Assessment and Plan Assessment: * Syncopal spell, likely related to arrhythmia. Patient was diagnosed with atrial fibrillation with rapid ventricular rate. * New onset dizziness, vertigo, probably due to peripheral vestibular dysfunction. This can be due to labyrinthitis versus BPPV. Dizziness much better. Plan: * Patient's MRI of the brain was completely normal. No evidence of mass, CVA or intracranial hemorrhage. * Patient will continue Xarelto. * Carotid Doppler showed no significant stenosis. Antegrade flow in both vertebral arteries. * Regarding dizziness, agree with Antivert. * If symptoms persist, suggest Medrol Dosepak and perhaps vestibular rehabilitation. * Patient remarkably better. Getting ready for discharge.
== END 2020-03-07 15:50 | disposition home health service (06) | DRG 309 ==
LOC: EC 20:42 → 3SCARD 22:39
PROVIDERS: ADMIT Internal Medicine; ATTEND Internal Medicine
DX: I48.0 Paroxysmal atrial fibrillation (principal); E87.1 Hypo-osmolality and hyponatremia; E05.90 Thyrotoxicosis, unspecified without thyrotoxic crisis or storm; E87.6 Hypokalemia; H81.10 Benign paroxysmal vertigo, unspecified ear; I10 Essential (primary) hypertension; T50.2X5A Adverse effect of carbonic-anhydrase inhibitors, benzothiadiazides and other diuretics, initial encounter; I27.20 Pulmonary hypertension, unspecified; J44.9 Chronic obstructive pulmonary disease, unspecified; S09.90XA Unspecified injury of head, initial encounter; W19.XXXA Unspecified fall, initial encounter; Z79.899 Other long term (current) drug therapy; Z90.710 Acquired absence of both cervix and uterus; Z11.59 Encounter for screening for other viral diseases; R55 Syncope and collapse; Z88.5 Allergy status to narcotic agent
CPT/HCPCS: 36415; 70450; 70551; 71046; 72125; 80048; 80053; 81001; 83735; 84439; 84443; 84484; 85025; 85027; 85379; 85610; 85730; 93005; 93270; 93306; 93880; 96361; 96365; 96366; 96375; 99285

== ENCOUNTER → 2020-06-06 | Outpatient (CLI) | payer MEDICARE ==
--- NOTE | 2020-06-06 16:44 | US ---
EXAMINATION TYPE: US venous doppler duplex LE LT DATE OF EXAM: 06/06/2020 4:21 PM COMPARISON: NONE CLINICAL HISTORY: M79.669 PAIN IN LT LOWER EXT. Left leg pain x 1 day, patient on blood thinners SIDE PERFORMED: Left TECHNIQUE: The lower extremity deep venous system is examined utilizing real time linear array sonog bassam with graded compression, doppler sonography and color-flow sonography. VESSELS IMAGED: External Iliac Vein (EIV) Common Femoral Vein Deep Femoral Vein Greater Saphenous Vein * Femoral Vein Popliteal Vein Small Saphenous Vein * Proximal Calf Veins (* superficial vessels) Left Leg: Appears negative for DVT IMPRESSION: No evidence of deep vein thrombosis in the left leg.
== END | disposition home or self-care (01) ==
LOC: RADUSWWP 15:55
PROVIDERS: ATTEND Internal Medicine Cardiovascular Disease
DX: M79.669 Pain in unspecified lower leg (principal); Z88.6 Allergy status to analgesic agent

== ENCOUNTER → 2021-07-20 | Outpatient (CLI) | payer MEDICARE ==
--- NOTE | 2021-07-20 20:37 | BD ---
EXAMINATION TYPE: Axial Bone Density DATE OF EXAM: 07/20/2021 COMPARISON: NONE CLINICAL HISTORY: Postmenopausal screening, osteoporosis Height: 5' Weight: 103 FRAX RISK QUESTIONS: Secondary Osteoporosis: 3. Menopause before 45: y RISK FACTORS HISTORY OF: Diet low in dairy products/other sources of calcium: y Postmenopausal woman: y MEDICATIONS: Which medication: blood pressure, cholesterol How Long: Additional History: EXAM MEASUREMENTS: Bone mineral densitometry was performed using the [employer]. Bone mineral density as measured about the Lumbar spine is: ----- L1-L4(G/cm2): 0.867 T Score Values are as follows: ----- L2: -2.9 ----- L3: -2.5 ----- L4: -2.1 ----- L1-L4: -2.6 Bone mineral density about the R hip (g/cm2): 0.784 Bone mineral density about the L hip (g/cm2): 0.802 T Score values are as follows: -----R Neck: -1.8 -----L Neck: -1.7 -----R Total: -2.0 -----L Total: -2.3 IMPRESSION: Osteoporosis (T Score less than -2.5). There is increased fracture risk and therapy is usually indicated based on age. Re-Screen 1-2 years. NOTE: T-SCORE=SD OF THE YOUNG ADULT MEAN.
== END | disposition home or self-care (01) ==
LOC: RADBDWWP 12:23
PROVIDERS: ATTEND Internal Medicine
DX: M81.0 Age-related osteoporosis without current pathological fracture (principal); M85.89 Other specified disorders of bone density and structure, multiple sites
CPT/HCPCS: 77080

== ENCOUNTER 2022-07-20 12:23 | Emergency (ER) | payer MEDICARE ==
[2022-07-20 12:33] VITALS: TEMP 98.5
--- NOTE | 2022-07-20 13:01 | ED ---
Female Urogenital HPI - General Chief complaint: Vaginal Bleeding Stated complaint: vaginal bleeding Time Seen by Provider: 07/20/22 12:36 Source: patient, family, RN notes reviewed Mode of arrival: ambulatory Limitations: no limitations - History of Present Illness Initial comments: This is an 87-year-old female who presents to the emergency department for vaginal bleeding. States that she was getting out of the shower this morning, and when she looked down she had blood dripping out of the vagina. She is concerned because she takes Eliquis, which she has been on to treat her atrial fibrillation over the last 2 years. Denies any history of vaginal bleeding and she has had a hysterectomy. She does not have any abdominal pain or lower back pain associated with this. Also denies any dizziness, nausea, or vomiting. She has not seen a cooling system operator in several years. Denies any fevers, chills, sore throat, cough, dyspnea, chest pain, palpitations, abdominal pain, nausea, vomiting, diarrhea, back pain, or headaches. MD Complaint: vaginal bleeding - Related Data Home Medications Medication Instructions Recorded Confirmed Pantoprazole Sodium [Protonix] 20 mg PO DAILY 03/04/20 07/20/22 Albuterol Inhaler [Ventolin Hfa 2 puff INHALATION RT-Q6H PRN 07/20/22 07/20/22 Inhaler] Calcium Carbonate [Calcium] 1,200 mg PO DAILY 07/20/22 07/20/22 Cholecalciferol [Vitamin D3 (25 50 mcg PO DAILY 07/20/22 07/20/22 Mcg = 1000 Iu)] Escitalopram [Lexapro] 5 mg PO HS 07/20/22 07/20/22 Ferrous Sulfate [Slow Release Iron] 140 mg PO DAILY 07/20/22 07/20/22 Rivaroxaban [Xarelto] 15 mg PO W/SUPPER 07/20/22 07/20/22 dilTIAZem HCL [dilTIAZem WEF41Mr 240 mg PO HS 07/20/22 07/20/22 ER (CD)] traZODone HCL [Desyrel] 50 mg PO HS 07/20/22 07/20/22 Allergies Allergy/AdvReac Type Severity Reaction Status Date / Time tramadol Allergy Severe Nausea & Verified 07/20/22 14:36 Vomiting & Diarrhea Review of Systems ROS Statement: Those systems with pertinent positive or pertinent negative responses have been documented in the HPI. ROS Other: All systems not noted in ROS Statement are negative. Past Medical History Past Medical History: Asthma, GERD/Reflux, Hypertension History of Any Multi-Drug Resistant Organisms: None Reported Past Surgical History: Appendectomy, Hysterectomy Additional Past Surgical History / Comment(s): Lumpectomy Past Psychological History: No Psychological Hx Reported Smoking Status: Never smoker Past Alcohol Use History: Daily, Occasional Past Drug Use History: None Reported General Exam Limitations: no limitations General appearance: alert, in no apparent distress Head exam: Present: atraumatic, normocephalic, normal inspection Respiratory exam: Present: normal lung sounds bilaterally. Absent: respiratory distress, wheezes, rales, rhonchi, stridor Cardiovascular Exam: Present: regular rate, normal rhythm, normal heart sounds. Absent: systolic murmur, diastolic murmur, rubs, gallop, clicks GI/Abdominal exam: Present: soft, tenderness (mild lower abdominal), normal bowel sounds. Absent: distended, guarding, rebound, rigid Neurological exam: Present: alert, oriented X3, CN II-XII intact Psychiatric exam: Present: normal affect, normal mood Skin exam: Present: warm, dry, intact, normal color. Absent: rash Course Vital Signs 07/20/22 07/20/22 12:31 13:55 Temperature 98.5 F Pulse Rate 80 59 L Respiratory 20 16 Rate Blood Pressure 163/82 164/85 O2 Sat by Pulse 97 97 Oximetry Medical Decision Making - Medical Decision Making This is an 87-year-old female who presents to the emergency department with vaginal bleeding. Lab work obtained and found to be nonactionable. Because the patient has had a hysterectomy, computed tomography scan of the abdomen and pelvis as opposed to an ultrasound was subsequently obtained. I did not identify any signs of free air, bowel wall thickening, or bladder wall thicken ing. Advised the patient that we cannot be sure if the bleeding was vaginal or rectal, and may also have come out of the urethra as opposed to the vaginal canal. She has gone to the bathroom twice since being here, and both of those times she has not had any bleeding. Advised that at her age after a hysterectomy, symptoms may be due to an atrophic vaginitis. Advised she try [id number] Replens if symptoms persist. She was given information to follow up with gynecology, which I instructed her to do for further evaluation, especially as certain gynecological cancers can still occur after a hysterectomy. Return precautions reviewed in depth, the patient is instructed to return to the emergency department with any new, worsening, or concerning symptoms. Patient verbalized understanding. This case was discussed in detail with the attending ED physician. Presentation, findings, and treatment plan discussed in detail as well. - Lab Data Result diagrams: 07/20/22 13:52 07/20/22 13:52 Lab Results 07/20/22 07/20/22 07/20/22 Range/Units 13:52 13:52 13:52 WBC 5.3 (3.8-10.6) k/uL RBC 4.04 (3.80-5.40) m/uL Hgb 13.4 (11.4-16.0) gm/dL Hct 39.2 (34.0-46.0) % MCV 97.1 (80.0-100.0) fL MCH 33.2 (25.0-35.0) pg MCHC 34.2 (31.0-37.0) g/dL RDW 12.0 (11.5-15.5) % Plt Count 270 (150-450) k/uL MPV 7.4 Neutrophils % 66 % Lymphocytes % 21 % Monocytes % 8 % Eosinophils % 3 % Basophils % 1 % Neutrophils # 3.5 (1.3-7.7) k/uL Lymphocytes # 1.1 (1.0-4.8) k/uL Monocytes # 0.4 (0-1.0) k/uL Eosinophils # 0.1 (0-0.7) k/uL Basophils # 0.0 (0-0.2) k/uL PT 12.0 (9.0-12.0) sec INR 1.1 (<1.2) APTT 24.7 (22.0-30.0) sec Sodium 141 (137-145) mmol/L Potassium 3.7 (3.5-5.1) mmol/L Chloride 107 (98-107) mmol/L Carbon Dioxide 27 (22-30) mmol/L Anion Gap 7 mmol/L BUN 15 (7-17) mg/dL Creatinine 0.64 (0.52-1.04) mg/dL Est GFR (CKD-EPI)AfAm >90 (>60 ml/min/1.73 sqM) Est GFR (CKD-EPI)NonAf 82 (>60 ml/min/1.73 sqM) Glucose 99 (74-99) mg/dL Calcium 10.1 (8.4-10.2) mg/dL Total Bilirubin 0.6 (0.2-1.3) mg/dL AST 25 (14-36) U/L ALT 18 (4-34) U/L Alkaline Phosphatase 55 (38-126) U/L Total Protein 6.6 (6.3-8.2) g/dL Albumin 4.4 (3.5-5.0) g/dL TSH 1.100 (0.465-4.680) mIU/L Urine Color Urine Appearance (Clear) Urine pH (5.0-8.0) Ur Specific Foley (1.001-1.035) Urine Protein (Negative) Urine Glucose (UA) (Negative) Urine Ketones (Negative) Urine Blood (Negative) Urine Nitrite (Negative) Urine Bilirubin (Negative) Urine Urobilinogen (<2.0) mg/dL Ur Leukocyte Esterase (Negative) 07/20/22 Range/Units 14:02 WBC (3.8-10.6) k/uL RBC (3.80-5.40) m/uL Hgb (11.4-16.0) gm/dL Hct (34.0-46.0) % MCV (80.0-100.0) fL MCH (25.0-35.0) pg MCHC (31.0-37.0) g/dL RDW (11.5-15.5) % Plt Count (150-450) k/uL MPV Neutrophils % % Lymphocytes % % Monocytes % % Eosinophils % % Basophils % % Neutrophils # (1.3-7.7) k/uL Lymphocytes # (1.0-4.8) k/uL Monocytes # (0-1.0) k/uL Eosinophils # (0-0.7) k/uL Basophils # (0-0.2) k/uL PT (9.0-12.0) sec INR (<1.2) APTT (22.0-30.0) sec Sodium (137-145) mmol/L Potassium (3.5-5.1) mmol/L Chloride (98-107) mmol/L Carbon Dioxide (22-30) mmol/L Anion Gap mmol/L BUN (7-17) mg/dL Creatinine (0.52-1.04) mg/dL Est GFR (CKD-EPI)AfAm (>60 ml/min/1.73 sqM) Est GFR (CKD-EPI)NonAf (>60 ml/min/1.73 sqM) Glucose (74-99) mg/dL Calcium (8.4-10.2) mg/dL Total Bilirubin (0.2-1.3) mg/dL AST (14-36) U/L ALT (4-34) U/L Alkaline Phosphatase (38-126) U/L Total Protein (6.3-8.2) g/dL Albumin (3.5-5.0) g/dL TSH (0.465-4.680) mIU/L Urine Color Colorless Urine Appearance Clear (Clear) Urine pH 8.0 (5.0-8.0) Ur Specific Foley 1.003 (1.001-1.035) Urine Protein Negative (Negative) Urine Glucose (UA) Negative (Negative) Urine Ketones Negative (Negative) Urine Blood Negative (Negative) Urine Nitrite Negative (Negative) Urine Bilirubin Negative (Negative) Urine Urobilinogen <2.0 (<2.0) mg/dL Ur Leukocyte Esterase Negative (Negative) - Radiology Data Radiology results: report reviewed, image reviewed Disposition Clinical Impression: Postmenopausal bleeding Disposition: HOME SELF-CARE Instructions (If sedation given, give patient instructions): Abnormal (Dysfunctional) Uterine Bleeding (ED), Vaginal Atrophy (ED) Additional Instructions: Return to the emergency department with any new, worsening, or concerning symptoms. If symptoms recur, you can try using [id number] Replens. Please contact the cooling system operator listed below for a follow-up appointment. Follow up with your primary care provider in 1-2 days. Is patient prescribed a controlled substance at d/c from ED?: No Referrals: Gamal Whitaker MD [Primary Care Provider] - 1-2 days Lisbeth Conley DO [Doctor of Osteopathic Medicine] - 1-2 days
[2022-07-20 13:58] LABS: Basophils % (A) 1 %; Eosinophils # (A) 0.1 k/uL (0-0.7); Eosinophils % (A) 3 %; HCT 39.2 % (34.0-46.0); HGB 13.4 gm/dL (11.4-16.0); Lymphocytes # (A) 1.1 k/uL (1.0-4.8); Lymphocytes % (A) 21 %; MCH 33.2 pg (25.0-35.0); MCHC 34.2 g/dL (31.0-37.0); MCV 97.1 fL (80.0-100.0); Mean Platelet Volume 7.4; Monocytes # (A) 0.4 k/uL (0-1.0); Monocytes % (A) 8 %; Neutrophils # (A) 3.5 k/uL (1.3-7.7); Neutrophils % (A) 66 %; Platelet Count 270 k/uL (150-450); RBC 4.04 m/uL (3.80-5.40); WBC 5.3 k/uL (3.8-10.6)
[2022-07-20 14:01] VITALS: BP 164/85; PULSE 59; RESP 16
[2022-07-20 14:09] LABS: INR 1.1 (<1.2); Partial Thromboplastin Time 24.7 sec (22.0-30.0)
[2022-07-20 14:15] LABS: Appearance,Urine Clear (Clear); Bilirubin,Urine Negative (Negative); Blood,Urine Negative (Negative); Color,Urine Colorless; Glucose,Urine (UA) Negative (Negative); Ketones,Urine Negative (Negative); Leukocyte Esterase,Urine Negative (Negative); Nitrite,Urine Negative (Negative); Protein,Urine Negative (Negative); Specific Gravity,Urine 1.003 (1.001-1.035); Urobilinogen,Urine <2.0 mg/dL (<2.0)
[2022-07-20 14:30] LABS: ALT 18 U/L (4-34); AST 25 U/L (14-36); African American GFR (CKD) >90 (>60 ml/min/1.73 sqM); Albumin 4.4 g/dL (3.5-5.0); Alkaline Phosphatase 55 U/L (38-126); Anion Gap 7 mmol/L; Blood Urea Nitrogen 15 mg/dL (7-17); Calcium 10.1 mg/dL (8.4-10.2); Carbon Dioxide 27 mmol/L (22-30); Chloride 107 mmol/L (98-107); Glucose 99 mg/dL (74-99); Non-African American GFR(CKD) 82 (>60 ml/min/1.73 sqM); Potassium 3.7 mmol/L (3.5-5.1); Sodium 141 mmol/L (137-145); Total Bilirubin 0.6 mg/dL (0.2-1.3); Total Protein 6.6 g/dL (6.3-8.2)
--- NOTE | 2022-07-20 15:25 | CT ---
EXAMINATION TYPE: CT abdomen pelvis w con CT DLP: 505.3 mGycm, Automated exposure control for dose reduction was used. DATE OF EXAM: 07/20/2022 3:12 PM COMPARISON: None CLINICAL INDICATION:Female, 87 years old with history of Abdominal pain, rectal or vaginal bleeding; Abdominal pain, rectal or vaginal bleeding, not sure from where. TECHNIQUE: Standard CT of the abdomen and pelvis following the administration of 100 cc of Isovue 3 00 IV contrast material. Coronal and sagittal reformats were performed. FINDINGS: LOWER CHEST: Posterior dependent subsegmental atelectasis is noted. ABDOMEN LIVER: Peripheral right hepatic lobe cyst measuring 1.3 cm. Mild periportal edema likely related to a ggressive fluid rehydration. GALLBLADDER AND BILE DUCTS: Unremarkable. PANCREAS: Unremarkable. SPLEEN: Unremarkable. ADRENAL GLANDS: Unremarkable. KIDNEYS AND URETERS: No evidence of hydronephrosis or renal calculus. The kidneys enhance symmetrical ly. Prominent right extrarenal pelvis. No suspicious focal lesion. Contrast is demonstrated within zaira th collecting systems on the delayed phase. PELVIS BLADDER: Incompletely distended but grossly unremarkable. REPRODUCTIVE: The uterus is surgically absent. Pelvic floor laxity. No suspicious adnexal mass. ABDOMEN & PELVIS STOMACH AND BOWEL: Small hiatal hernia, duodenum is unremarkable. No focal wall thickening. Distal co lonic diverticulosis without evidence for acute diverticulitis. Stool is present throughout the sigmo id colon and rectum. No evidence of bowel obstruction. PERITONEUM: No evidence of pneumoperitoneum. Trace free fluid in the pelvis. VASCULATURE: Moderate atherosclerotic calcifications are present throughout the abdominal aorta and i ts branches. No evidence of aortic aneurysm. Pelvic phleboliths. MUSCULOSKELETAL: No acute osseous abnormalities. No aggressive osseous lesion. Degenerative changes o f the pubic symphysis. Multilevel facet arthropathy. LYMPH NODES: No gross evidence for lymphadenopathy. SOFT TISSUE/ABDOMINAL WALL: Unremarkable IMPRESSION: 1. No acute abdominal/pelvic process. 2. Colonic diverticulosis without evidence for acute diverticulitis.
== END 2022-07-20 16:34 | disposition home or self-care (01) ==
LOC: EC 12:23
DX: N95.0 Postmenopausal bleeding (principal); J45.909 Unspecified asthma, uncomplicated; K21.9 Gastro-esophageal reflux disease without esophagitis; I10 Essential (primary) hypertension; I48.91 Unspecified atrial fibrillation; Z88.5 Allergy status to narcotic agent; Z79.01 Long term (current) use of anticoagulants; Z79.899 Other long term (current) drug therapy; Z79.51 Long term (current) use of inhaled steroids
CPT/HCPCS: 36415; 80053; 84443; 85025; 85610; 85730; 81003; 74177; 99284; Q9967

== ENCOUNTER 2022-08-27 10:44 | Emergency (ER) | payer MEDICARE ==
[2022-08-27 11:02] VITALS: RESP 18
[2022-08-27 12:09] LABS: Basophils # (A) 0.1 k/uL (0-0.2); Basophils % (A) 1 %; Eosinophils # (A) 0.2 k/uL (0-0.7); Eosinophils % (A) 4 %; HGB 13.4 gm/dL (11.4-16.0); Lymphocytes # (A) 0.9 k/uL (1.0-4.8); Lymphocytes % (A) 20 %; MCH 32.8 pg (25.0-35.0); MCHC 34.4 g/dL (31.0-37.0); MCV 95.3 fL (80.0-100.0); Mean Platelet Volume 7.5; Monocytes # (A) 0.3 k/uL (0-1.0); Monocytes % (A) 6 %; Neutrophils % (A) 67 %; Platelet Count 232 k/uL (150-450); RBC 4.09 m/uL (3.80-5.40); RDW 12.6 % (11.5-15.5); WBC 4.6 k/uL (3.8-10.6)
--- NOTE | 2022-08-27 12:18 | XR ---
EXAMINATION TYPE: XR chest 2V DATE OF EXAM: 08/27/2022 12:11 PM COMPARISON: Chest radiographs from 03/04/2020 TECHNIQUE: XR chest 2V Frontal and lateral views of the chest. CLINICAL INDICATION:Female, 87 years old with history of Weakness; FINDINGS: Lungs/Pleura: There is flattening of the diaphragm with increased lucency of the lungs. No evidence o f pneumothorax, pleural effusion or focal consolidation. Mild pulmonary fibrotic changes. Pulmonary vascularity: Unremarkable. Heart/mediastinum: Cardiomediastinal silhouette is unremarkable. Musculoskeletal: Multiple level degenerative disc disease changes seen throughout the spine. IMPRESSION: 1. No acute cardiopulmonary disease/process. 2. Mild pulmonary fibrotic and COPD changes.
--- NOTE | 2022-08-27 12:32 | ED ---
Weakness HPI - General Chief complaint: Weakness Stated complaint: generalized weakness Time Seen by Provider: 08/27/22 11:28 Source: patient, family, RN notes reviewed Mode of arrival: EMS Limitations: no limitations - History of Present Illness Initial comments: Patient is an 87-year-old female presenting to the emergency room with complaints of generalized weakness ongoing for 3 days with out worsening or improvement of symptoms. She was seen by her event designer during this weakness and was ordered an event monitor which is currently intact and to be removed at 4 PM today. She denies any focal neurological deficits, altered mental status, chest pain, shortness of breath, abdominal pain, nausea, vomiting, fevers or chills. She does report that she has a history of atrial fibrillation but does not feel that she is in atrial fibrillation at this time and that that is not affecting her weakness. She also reports having Covid in May 2022 however her to take from that initial illness did improve. She denies any known exposure to COVID flu or influenza. She denies any other specific complaints. In addition to her covert and A. fib history she has a past medical history significant for GERD, hypertension, and asthma. - Related Data Home Medications Medication Instructions Recorded Confirmed Pantoprazole Sodium [Protonix] 20 mg PO DAILY 03/04/20 07/20/22 Albuterol Inhaler [Ventolin Hfa 2 puff INHALATION RT-Q6H PRN 07/20/22 07/20/22 Inhaler] Calcium Carbonate [Calcium] 1,200 mg PO DAILY 07/20/22 07/20/22 Cholecalciferol [Vitamin D3 (25 50 mcg PO DAILY 07/20/22 07/20/22 Mcg = 1000 Iu)] Escitalopram [Lexapro] 5 mg PO HS 07/20/22 07/20/22 Ferrous Sulfate [Slow Release Iron] 140 mg PO DAILY 07/20/22 07/20/22 Rivaroxaban [Xarelto] 15 mg PO W/SUPPER 07/20/22 07/20/22 dilTIAZem HCL [dilTIAZem CST05Mt 240 mg PO HS 07/20/22 07/20/22 ER (CD)] traZODone HCL [Desyrel] 50 mg PO HS 07/20/22 07/20/22 Allergies Allergy/AdvReac Type Severity Reaction Status Date / Time tramadol Allergy Severe Nausea & Verified 08/27/22 11:02 Vomiting & Diarrhea Review of Systems ROS Statement: Those systems with pertinent positive or pertinent negative responses have been documented in the HPI. ROS Other: All systems not noted in ROS Statement are negative. Past Medical History Past Medical History: Atrial Fibrillation, Asthma, GERD/Reflux, Hypertension Additional Past Medical History / Comment(s): holter monitor 08/27/22 History of Any Multi-Drug Resistant Organisms: None Reported Past Surgical History: Appendectomy, Hysterectomy Additional Past Surgical History / Comment(s): Lumpectomy Past Psychological History: No Psychological Hx Reported Smoking Status: Never smoker Past Alcohol Use History: Daily, Occasional Past Drug Use History: None Reported General Exam - General Exam Comments Initial Comments: GENERAL: No acute distress, well developed, well nourished. HEENT: Normocephalic, atraumatic. Pupils equal, round, reactive to light. Moist mucous membranes. EOMI. Range of motion neck. LUNGS: No respiratory distress. Clear to auscultation, no adventitious sounds, no use of accessory muscles. HEART: Regular rate and rhythm without murmur, rub, or gallop. ABDOMEN: Normal bowel sounds. Soft, non-tender, non-distended. BACK: Normal inspection. EXTREMITIES: No edema. No tenderness. Moves all extremities. NEUROLOGIC: Alert & oriented x 3. CN II-XII grossly intact. No focal neurological deficits. PSYCHIATRIC: Normal affect and behavior. DERMATOLOGIC: Skin intact, without rashes or lesions noted. 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 sent in by a medical professional or institution? @ -Non- Did you speak to anyone other than the patient for history? @ -Daughter Did you review nursing and triage notes? @ -Yes and agree with nursing and triage notes Were old charts reviewed? @Previous EKG Differential Diagnosis? @ -Differential Weakness: Hypoglycemia, shock, sepsis, hyponatremia, anemia, infection, VA, ETOH, adverse medicine reaction, overdose, stroke, this is not meant to be an all-inclusive list. EKG interpreted by me (3pts min.)? @ -Sinus rhythm with sinus arrhythmia, ventricular rate 69 bpm, DC interval 202 ms, QRS duration 88 ms, QT/QTC 408/437 ms, PRT axes 58, 33, 9 X-rays interpreted by me (1pt min.)? @ -Two-view chest x-ray without focal consolidation or infiltration. Mild pulmonary fibrosis/COPD changes noted. CT interpreted by me (1pt min.)? @ -None U/S interpreted by me (1pt. min.)? @ -None What testing was considered but not performed? (CT, X-rays, U/S, labs)? Why? @CT of the brain considered however deferred due to no focal neurological deficits. What meds were considered but not given? Why? @ -None Did you discuss the management of the patient with other professionals? @ -No Did you reconcile home meds? @ -None Was smoking cessation discussed for >3mins.? @ -None Was critical care preformed (if so, how long)? @ -None Were there social determinants of health that impacted care today? How? (Homelessness, low income, unemployed, alcoholism, drug addiction, transportation, low edu. Level, literacy, decrease access to med. care, nursing home, rehab)? @ -No Was there de-escalation of care discussed even if they declined? (Discuss DNR or withdrawal of care, Hospice)? @ -No What co-morbidities impacted this encounter? (DM, HTN, Smoking, COPD, CAD, Cancer, CVA, Hep., AIDS, mental health diagnosis, sleep apnea, morbid obesity)? @ -None Was patient admitted / discharged? @ -CBC, CMP, troponin, lactic acid, TSH, urinalysis, and separate swab all completed along with EKG and chest x-ray as documented above. CMP unremarkable, troponin negative, lactic acid normal, TSH normal, urinalysis overall normal with the exception of +1 ketones. Swab negative for covert flu and RSV, CBC normal without anemia or leukocytosis. Slightly low lymphocytes noted at 0.9. Despite negative swab for covert flu and influenza given acute onset and generalized symptoms highly likely for viral illness. 1 L IV fluids given and tolerated well. Will defer further diagnostic imaging and laboratory studies at this time. Encouraged adequate rest and hydration. Return parameters to the emergency room reviewed. Will discharge home in stable condition with her daughter with follow-up with cardiology and her primary care provider. Undiagnosed new problem with uncertain prognosis? @ -Weakness exact etiology undetermined likely secondary to viral illness. Drug Therapy requiring intensive monitoring for toxicity (Heparin, Nitro, Insulin, Cardizem)? @ -None Were any procedures done? @ -None Diagnosis/symptom? @ -Weakness Acute, or Chronic, or Acute on Chronic? @ -Acute Uncomplicated (without systemic symptoms) or Complicated (systemic symptoms)? @ -Uncomplicated Side effects of treatment? @ -None Exacerbation, Progression, or Severe Exacerbation] @ -No Poses a threat to life or bodily function? @ -No Case discussed with Dr. Aragon. - Lab Data Result diagrams: 08/27/22 11:34 08/27/22 11:34 Lab Results 08/27/22 08/27/22 08/27/22 Range/Units 11:34 11:34 11:34 WBC 4.6 (3.8-10.6) k/uL RBC 4.09 (3.80-5.40) m/uL Hgb 13.4 (11.4-16.0) gm/dL Hct 39.0 (34.0-46.0) % MCV 95.3 (80.0-100.0) fL MCH 32.8 (25.0-35.0) pg MCHC 34.4 (31.0-37.0) g/dL RDW 12.6 (11.5-15.5) % Plt Count 232 (150-450) k/uL MPV 7.5 Neutrophils % 67 % Lymphocytes % 20 % Monocytes % 6 % Eosinophils % 4 % Basophils % 1 % Neutrophils # 3.0 (1.3-7.7) k/uL Lymphocytes # 0.9 L (1.0-4.8) k/uL Monocytes # 0.3 (0-1.0) k/uL Eosinophils # 0.2 (0-0.7) k/uL Basophils # 0.1 (0-0.2) k/uL PT 11.9 (9.0-12.0) sec INR 1.2 H (<1.2) APTT 26.3 (22.0-30.0) sec Sodium 138 (137-145) mmol/L Potassium 3.7 (3.5-5.1) mmol/L Chloride 106 (98-107) mmol/L Carbon Dioxide 27 (22-30) mmol/L Anion Gap 5 mmol/L BUN 14 (7-17) mg/dL Creatinine 0.61 (0.52-1.04) mg/dL Est GFR (CKD-EPI)AfAm >90 (>60 ml/min/1.73 sqM) Est GFR (CKD-EPI)NonAf 83 (>60 ml/min/1.73 sqM) Glucose 101 H (74-99) mg/dL Plasma Lactic Acid Ap (0.7-2.0) mmol/L Calcium 8.8 (8.4-10.2) mg/dL Total Bilirubin 0.9 (0.2-1.3) mg/dL AST 23 (14-36) U/L ALT 16 (4-34) U/L Alkaline Phosphatase 61 (38-126) U/L Troponin I (0.000-0.034) ng/mL Total Protein 6.5 (6.3-8.2) g/dL Albumin 4.1 (3.5-5.0) g/dL TSH 1.040 (0.465-4.680) mIU/L Urine Color Urine Appearance (Clear) Urine pH (5.0-8.0) Ur Specific [place] (1.001-1.035) Urine Protein (Negative) Urine Glucose (UA) (Negative) Urine Ketones (Negative) Urine Blood (Negative) Urine Nitrite (Negative) Urine Bilirubin (Negative) Urine Urobilinogen (<2.0) mg/dL Ur Leukocyte Esterase (Negative) Influenza Type A (PCR) (Not Detectd) Influenza Type B (PCR) (Not Detectd) RSV (PCR) (Not Detectd) SARS-CoV-2 (PCR) (Not Detectd) 08/27/22 08/27/22 08/27/22 Range/Units 11:34 11:34 11:47 WBC (3.8-10.6) k/uL RBC (3.80-5.40) m/uL Hgb (11.4-16.0) gm/dL Hct (34.0-46.0) % MCV (80.0-100.0) fL MCH (25.0-35.0) pg MCHC (31.0-37.0) g/dL RDW (11.5-15.5) % Plt Count (150-450) k/uL MPV Neutrophils % % Lymphocytes % % Monocytes % % Eosinophils % % Basophils % % Neutrophils # (1.3-7.7) k/uL Lymphocytes # (1.0-4.8) k/uL Monocytes # (0-1.0) k/uL Eosinophils # (0-0.7) k/uL Basophils # (0-0.2) k/uL PT (9.0-12.0) sec INR (<1.2) APTT (22.0-30.0) sec Sodium (137-145) mmol/L Potassium (3.5-5.1) mmol/L Chloride (98-107) mmol/L Carbon Dioxide (22-30) mmol/L Anion Gap mmol/L BUN (7-17) mg/dL Creatinine (0.52-1.04) mg/dL Est GFR (CKD-EPI)AfAm (>60 ml/min/1.73 sqM) Est GFR (CKD-EPI)NonAf (>60 ml/min/1.73 sqM) Glucose (74-99) mg/dL Plasma Lactic Acid Ap 0.8 (0.7-2.0) mmol/L Calcium (8.4-10.2) mg/dL Total Bilirubin (0.2-1.3) mg/dL AST (14-36) U/L ALT (4-34) U/L Alkaline Phosphatase (38-126) U/L Troponin I <0.012 (0.000-0.034) ng/mL Total Protein (6.3-8.2) g/dL Albumin (3.5-5.0) g/dL TSH (0.465-4.680) mIU/L Urine Color Urine Appearance (Clear) Urine pH (5.0-8.0) Ur Specific [place] (1.001-1.035) Urine Protein (Negative) Urine Glucose (UA) (Negative) Urine Ketones (Negative) Urine Blood (Negative) Urine Nitrite (Negative) Urine Bilirubin (Negative) Urine Urobilinogen (<2.0) mg/dL Ur Leukocyte Esterase (Negative) Influenza Type A (PCR) Not Detected (Not Detectd) Influenza Type B (PCR) Not Detected (Not Detectd) RSV (PCR) Not Detected (Not Detectd) SARS-CoV-2 (PCR) Not Detected (Not Detectd) 08/27/22 Range/Units 12:04 WBC (3.8-10.6) k/uL RBC (3.80-5.40) m/uL Hgb (11.4-16.0) gm/dL Hct (34.0-46.0) % MCV (80.0-100.0) fL MCH (25.0-35.0) pg MCHC (31.0-37.0) g/dL RDW (11.5-15.5) % Plt Count (150-450) k/uL MPV Neutrophils % % Lymphocytes % % Monocytes % % Eosinophils % % Basophils % % Neutrophils # (1.3-7.7) k/uL Lymphocytes # (1.0-4.8) k/uL Monocytes # (0-1.0) k/uL Eosinophils # (0-0.7) k/uL Basophils # (0-0.2) k/uL PT (9.0-12.0) sec INR (<1.2) APTT (22.0-30.0) sec Sodium (137-145) mmol/L Potassium (3.5-5.1) mmol/L Chloride (98-107) mmol/L Carbon Dioxide (22-30) mmol/L Anion Gap mmol/L BUN (7-17) mg/dL Creatinine (0.52-1.04) mg/dL Est GFR (CKD-EPI)AfAm (>60 ml/min/1.73 sqM) Est GFR (CKD-EPI)NonAf (>60 ml/min/1.73 sqM) Glucose (74-99) mg/dL Plasma Lactic Acid Ap (0.7-2.0) mmol/L Calcium (8.4-10.2) mg/dL Total Bilirubin (0.2-1.3) mg/dL AST (14-36) U/L ALT (4-34) U/L Alkaline Phosphatase (38-126) U/L Troponin I (0.000-0.034) ng/mL Total Protein (6.3-8.2) g/dL Albumin (3.5-5.0) g/dL TSH (0.465-4.680) mIU/L Urine Color Light Yellow Urine Appearance Clear (Clear) Urine pH 7.0 (5.0-8.0) Ur Specific [place] 1.011 (1.001-1.035) Urine Protein Negative (Negative) Urine Glucose (UA) Negative (Negative) Urine Ketones 1+ H (Negative) Urine Blood Negative (Negative) Urine Nitrite Negative (Negative) Urine Bilirubin Negative (Negative) Urine Urobilinogen <2.0 (<2.0) mg/dL Ur Leukocyte Esterase Negative (Negative) Influenza Type A (PCR) (Not Detectd) Influenza Type B (PCR) (Not Detectd) RSV (PCR) (Not Detectd) SARS-CoV-2 (PCR) (Not Detectd) - Radiology Data Radiology results: report reviewed, image reviewed Disposition Clinical Impression: Generalized weakness Disposition: HOME SELF-CARE Condition: Stable Instructions (If sedation given, give patient instructions): Weakness (ED) Additional Instructions: Please continue your follow-up with cardiology for your Holter monitor removal and results. Please rest and stay well hydrated. Please follow-up with your primary care provider. Please return to the Emergency Department if symptoms worsen or any other concerns. Is patient prescribed a controlled substance at d/c from ED?: No Referrals: Gamal Whitaker MD [Primary Care Provider] - 1-2 days Time of Disposition: 14:11
[2022-08-27 12:34] LABS: AST 23 U/L (14-36); African American GFR (CKD) >90 (>60 ml/min/1.73 sqM); Albumin 4.1 g/dL (3.5-5.0); Blood Urea Nitrogen 14 mg/dL (7-17); Carbon Dioxide 27 mmol/L (22-30); Chloride 106 mmol/L (98-107); Glucose 101 mg/dL (74-99); Non-African American GFR(CKD) 83 (>60 ml/min/1.73 sqM); Potassium 3.7 mmol/L (3.5-5.1); Total Bilirubin 0.9 mg/dL (0.2-1.3); Total Protein 6.5 g/dL (6.3-8.2)
[2022-08-27 12:35] LABS: ALT 16 U/L (4-34); Alkaline Phosphatase 61 U/L (38-126); Anion Gap 5 mmol/L; Calcium 8.8 mg/dL (8.4-10.2); Sodium 138 mmol/L (137-145)
[2022-08-27 12:42] LABS: INR 1.2 (<1.2); Partial Thromboplastin Time 26.3 sec (22.0-30.0); Prothrombin Time 11.9 sec (9.0-12.0)
[2022-08-27 12:51] VITALS: TEMP 99.3
[2022-08-27] MEDS ORDERED: SODIUM CHLORIDE 0.9% 1,000 ML IV STA (12:52)
[2022-08-27 12:54] LABS: Appearance,Urine Clear (Clear); Bilirubin,Urine Negative (Negative); Blood,Urine Negative (Negative); Color,Urine Light Yellow; Glucose,Urine (UA) Negative (Negative); Ketones,Urine 1+ (Negative); Leukocyte Esterase,Urine Negative (Negative); Nitrite,Urine Negative (Negative); Protein,Urine Negative (Negative); Specific Gravity,Urine 1.011 (1.001-1.035); Urobilinogen,Urine <2.0 mg/dL (<2.0)
[2022-08-27 14:44] VITALS: BP 148/72; PULSE 61
== END 2022-08-27 14:44 | disposition home or self-care (01) ==
LOC: EC 10:44
DX: R53.1 Weakness (principal); I48.91 Unspecified atrial fibrillation; J45.909 Unspecified asthma, uncomplicated; K21.9 Gastro-esophageal reflux disease without esophagitis; I10 Essential (primary) hypertension; Z88.5 Allergy status to narcotic agent; Z79.899 Other long term (current) drug therapy; Z20.822 Contact with and (suspected) exposure to COVID-19
CPT/HCPCS: 36415; 71046; 80053; 81003; 83605; 84443; 84484; 85025; 85610; 85730; 87636; 93005; 96360; 99285